=== PATIENT | female | born 1955 | race Caucasian/White ===

== ENCOUNTER 2017-05-13 10:31 | Outpatient (CLI) | payer BC ==
--- NOTE | 2017-05-13 12:53 | MMO ---
BILATERAL DIAGNOSTIC MAMMOGRAMS: HISTORY: A 61-year-old female with a personal history of left breast cancer. COMPARISON: 05/07/16, 04/25/15, 04/13/14. This patient's mammogram is interpreted with the assistance of computer-aided detection. Scattered areas of fibroglandular density are noted in both breasts. There is a stable-appearing sca r in the left breast. No direct or indirect evidence of malignancy. IMPRESSION: BI-RADS category 2, benign findings. Continued annual followup mammograms. BIRADS 2: Benign Finding(s) Routine annual screening mammography (for women over age 40) POS: [facility]
== END 2017-05-13 10:32 | disposition home or self-care (01) ==
LOC: MAMMO 10:31
PROVIDERS: ATTEND Specialist
DX: Z08 Encounter for follow-up examination after completed treatment for malignant neoplasm (principal); Z85.3 Personal history of malignant neoplasm of breast
CPT/HCPCS: 77066; G0204

== ENCOUNTER 2018-05-22 08:25 | Outpatient (CLI) | payer BC | END 2018-05-22 08:26 | disposition home or self-care (01) | LOC: BICMAMMO 08:25 | PROVIDERS: ATTEND Specialist | DX: Z08 Encounter for follow-up examination after completed treatment for malignant neoplasm (principal); Z85.3 Personal history of malignant neoplasm of breast | CPT/HCPCS: 77066; G0279 ==

== ENCOUNTER 2018-12-25 09:01 | Inpatient (IN) | payer BC ==
[2018-12-25 10:10] LABS: Band 42 % (5-11); Eosinophils 1 % (0-10); Hemoglobin 9.9 g/dL (12.0-16.0); Lymphocytes 8 % (21-51); MDiff Complete? YES; Mean Corpuscular HGB CONC 31.3 g/dL (32.0-36.0); Mean Corpuscular Hemoglobin 27.7 pg (27.0-31.0); Mean Corpuscular Volume 88.5 fL (78.0-98.0); Mean Platelet Volume 6.5 fL (7.4-10.4); Metamyelocyte 1 % (0-0); Monocytes 2 % (0-10); Neutrophil 46 % (42-75); Platelet Count 652 thou/uL (130-400); RBC Distribution Width 17.4 % (11.5-14.5); Red Blood Cell (RBC) Count 3.59 mill/uL (4.20-5.40); Reflex for Review?? YES; Toxic Granulation SLIGHT; White Blood Cell (WBC) Count 13.8 thou/uL (4.8-10.8)
[2018-12-25 10:13] LABS: ALT (SGPT) 12 U/L (8-55); AST (SGOT) 16 U/L (5-34); Albumin 2.8 g/dL (3.4-4.8); Alkaline Phosphatase 92 U/L (40-150); Anion Gap 16 mmol/L (10-20); BUN (Urea Nitrogen) 17 mg/dL (9.8-20.1); Bilirubin, Total 0.4 mg/dL (0.2-1.2); Calc. Creatinine Clearance 0 mL/min (70-130); Calcium 8.3 mg/dL (7.8-10.44); Carbon Dioxide 18 mmol/L (23-31); Chloride 100 mmol/L (98-107); Estimated GFR-MDRD 55; Globulin 4.1 g/dL (2.4-3.5); Glucose 131 mg/dL (80-115); Potassium 3.2 mmol/L (3.5-5.1); Protein, Total 6.9 g/dL (6.0-8.3); Sodium 131 mmol/L (136-145)
[2018-12-25] MEDS ORDERED: Piperacillin/Tazobactam 4.5 GM VIAL ONE (10:23)
[2018-12-25] MEDS ORDERED: Sodium Chloride 0.9% 100 ML ONE (10:24)
[2018-12-25] MEDS ORDERED: Vancomycin HCl 1.5 GM in Sodium Chloride 0.9% 250 ML 300 ML IVPB SCH (10:30)
[2018-12-25 11:07] LABS: Bacteria/HPF 1+ HPF (None Seen); Bilirubin Negative (Negative); Blood, Urine 3+ (Negative); Clarity Turbid (Clear); Glucose, Urine (Dipstick) Normal (Negative); Leukocyte Negative Leu/uL (Negative); Nitrite Negative (Negative); Protein, Urine (Dipstick) 100 mg/dL (Neg-Trace); RBC/HPF Greater than 50 HPF (0-3); Urobilinogen Normal mg/dL (Less than 2); Yeast-Budding 1+ HPF (None Seen)
[2018-12-25] MEDS ORDERED: Ketorolac Tromethamine 60 MG/2 ML VIAL ONE (11:29)
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
[2018-12-25] MEDS ORDERED: HUM PROTHROMBIN CPLX IV SCH (12:15)
[2018-12-25] MEDS ORDERED: [UNRECOGNIZED DRUG - OTHER] IV SCH (12:15)
[2018-12-25] MEDS ORDERED: ADMIXTURE FEE IV SCH (12:15)
[2018-12-25] MEDS ORDERED: Phytonadione 10 MG/ML AMP SLOW IVP SCH (12:15)
[2018-12-25] MEDS ORDERED: ISOVUE-370 76%-LOCM 1 ML ONE (12:17)
[2018-12-25] MEDS ORDERED: Iopamidol 370 76% 50 ML VIAL FS ONE (12:17)
[2018-12-25 12:29] LABS: PTT 91.5 SEC (22.9-36.1); Prothrombin Time 76.2 SEC (12.0-14.7)
[2018-12-25 12:33] LABS: INR-International Normal Ratio 9.6
--- NOTE | 2018-12-25 13:13 | HP ---
Job ID: [id number]
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
[2018-12-25] MEDS ORDERED: Fentanyl 250 MCG/5 ML VIAL ONE (14:24)
[2018-12-25] MEDS ORDERED: Fentanyl 100 MCG/2 ML VIAL ONE ×3 (14:24→18:25)
[2018-12-25 14:30] LABS: INR-International Normal Ratio 3.2; PTT 56.7 SEC (22.9-36.1); Prothrombin Time 32.2 SEC (12.0-14.7)
[2018-12-25] MEDS ORDERED: Lidocaine 1% PF 5 ML VIAL ONE (15:05)
[2018-12-25] MEDS ORDERED: Succinylcholine Chloride 20 MG/ML 10 ml SYRINGE FS ONE (15:05)
[2018-12-25] MEDS ORDERED: PROPOFOL 200 MG/20 ML VIAL ONE (15:05)
[2018-12-25] MEDS ORDERED: Rocuronium Bromide 10 MG/ML (10ML VIAL) ONE (15:05)
[2018-12-25] MEDS ORDERED: Propofol 500 MG/50 ML VIAL ONE (17:43)
[2018-12-25] MEDS ORDERED: Promethazine HCl 25 MG/ML VIAL IM PRN (18:01)
[2018-12-25] MEDS ORDERED: Ondansetron HCl/PF 4 MG/2 ML Vial IVP PRN (18:01)
[2018-12-25] MEDS ORDERED: Promethazine HCl 25 MG/ML VIAL SLOW IVP PRN (18:01)
[2018-12-25 18:12] LABS: Actual Bicarbonate (HCO3a) 19.1 mEq/L (22-28); Base Excess (BEa) -6.9 mEq/L (-2.0 to +3.0); Calcium, Ionized 1.08 mmol/L (1.12-1.30); Carboxyhemoglobin (COHb) 0.8 gm% (0.0-3.0); Hemoglobin (Hb) 11.6 g/dL (12.0-16.0); O2 Tension (PaO2) 159.1 mmHg (> 80.0); Potassium - ABG Lab 3.59 mmol/L (3.70-5.30)
[2018-12-25 18:13] LABS: Puncture Site RRAD
--- NOTE | 2018-12-25 18:39 | RAD ---
RADIOGRAPH CHEST 1 VIEW: DATE: 12/25/2018 HISTORY: 63-year-old female status post intubation. FINDINGS: There is no airspace density, pulmonary edema, or pneumothorax. The lateral costophrenic angles are n ot effaced. ETT distal tip at mid thoracic trachea. Esophagogastric tube side port at EG junction, distal tip in proximal stomach. Right subclavian central line with distal tip at upper right atrium. IMPRESSION: 1. No acute pulmonary findings. 2. Endotracheal tube, nasogastric tube, and right subclavian central venous catheter.
[2018-12-25] MEDS ORDERED: Morphine 4 MG/ML VIAL SLOW IVP PRN (19:40)
[2018-12-25] MEDS ORDERED: Ventilator Sedation Protocol 1 EACH FS SCH (19:40)
[2018-12-25] MEDS ORDERED: Ondansetron PF 4 MG/2 ML Vial IVP PRN (19:40)
[2018-12-25] MEDS ORDERED: Dextrose 5% in Water 1,000 ML IV PRN (19:40)
[2018-12-25] MEDS ORDERED: Dextrose 50% Abboject 50 ML SYRINGE SLOW IVP PRN (19:40)
[2018-12-25] MEDS ORDERED: Fentanyl BOLUS 250 ML IVPB PRN (19:53)
[2018-12-25] MEDS ORDERED: Propofol BOLUS 1,000 MG/100 ML VIAL IV PRN (19:53)
[2018-12-25] MEDS ORDERED: Morphine 2 MG/ML SYRINGE SLOW IVP PRN (19:53)
[2018-12-25] MEDS ORDERED: DISCONTINUE PREVIOUS NARCOTIC PAIN MEDICATIONS AND BENZODIAZEPINES FS SCH (19:53)
[2018-12-25] MEDS: Piperacillin/Tazobactam 4.5 GM in Sodium Chloride 0.9% 100 ML IVPB SCH ×2 (20:00→23:44)
[2018-12-25] MEDS: Sodium Chloride 0.9% 1,000 ML IV SCH (20:01)
[2018-12-25] MEDS: fentaNYL Citrate/PF 2,000 MCG in Sodium Chloride 0.9% 60 ML IV SCH (20:10)
[2018-12-25] MEDS: Famotidine/PF 20 mg/2ml Vial SLOW IVP SCH (20:22)
[2018-12-25] MEDS: Enoxaparin Sodium 40 MG/0.4 ML SYRINGE SC SCH (20:22)
[2018-12-25] MEDS: Vancomycin HCl 1 GM in Premix Bag 1 BAG IVPB SCH (22:35)
[2018-12-25] MEDS: Propofol 1,000 MG/100 ML VIAL IV PRN (23:44)
[2018-12-26] MEDS: Propofol 1,000 MG/100 ML VIAL IV PRN ×3 (04:59→19:42)
[2018-12-26] MEDS: Piperacillin/Tazobactam 4.5 GM in Sodium Chloride 0.9% 100 ML IVPB SCH ×4 (04:59→23:19)
[2018-12-26] MEDS: Sodium Chloride 0.9% 1,000 ML IV SCH (04:59)
[2018-12-26 05:07] LABS: Prothrombin Time 42.9 SEC (12.0-14.7)
[2018-12-26 05:08] LABS: PTT 57.1 SEC (22.9-36.1)
[2018-12-26 05:24] LABS: Anion Gap 12 mmol/L (10-20); BUN (Urea Nitrogen) 18 mg/dL (9.8-20.1); Calc. Creatinine Clearance 134 mL/min (70-130); Calcium 7.3 mg/dL (7.8-10.44); Carbon Dioxide 20 mmol/L (23-31); Chloride 106 mmol/L (98-107); Estimated GFR-MDRD 68; Glucose 161 mg/dL (80-115); Potassium 3.4 mmol/L (3.5-5.1); Sodium 135 mmol/L (136-145)
[2018-12-26 05:28] LABS: INR-International Normal Ratio 4.6
[2018-12-26 06:07] LABS: Anisocytosis SLIGHT = 6-15 cells (100X) (0-5/hpf); Band 47 % (5-11); Hypochromia SLIGHT = 6-15 cells (100X) (0-5/hpf); Lymphocytes 4 % (21-51); MDiff Complete? YES; Mean Corpuscular HGB CONC 30.5 g/dL (32.0-36.0); Mean Corpuscular Hemoglobin 27.3 pg (27.0-31.0); Mean Corpuscular Volume 89.7 fL (78.0-98.0); Mean Platelet Volume 6.5 fL (7.4-10.4); Monocytes 4 % (0-10); Neutrophil 45 % (42-75); Platelet Count 551 thou/uL (130-400); Platelet Morphology Comment Appears Increased; RBC Distribution Width 17.3 % (11.5-14.5); Red Blood Cell (RBC) Count 2.93 mill/uL (4.20-5.40); Toxic Granulation SLIGHT; White Blood Cell (WBC) Count 11.7 thou/uL (4.8-10.8)
[2018-12-26 08:30] LABS: CO2 Tension 33.7 mmHg (35.0-45.0)
[2018-12-26 08:31] LABS: Actual Bicarbonate (HCO3a) 20.2 mEq/L (22-28); Hemoglobin (Hb) 9.8 g/dL (12.0-16.0); Potassium - ABG Lab 3.33 mmol/L (3.70-5.30)
[2018-12-26] MEDS: Famotidine/PF 20 mg/2ml Vial SLOW IVP SCH ×2 (08:31→20:03)
[2018-12-26 08:32] LABS: Calcium, Ionized 1.02 mmol/L (1.12-1.30); Puncture Site RRA
[2018-12-26 08:33] LABS: ALV-art Gradient 81.425 (0-20)
--- NOTE | 2018-12-26 08:53 | RAD ---
XR Chest 1 View Portable History: Ventilated patient Comparison: Radiograph prior day Findings: Patient is intubated endotracheal tube tip at the level of the clavicles in good position. Enteric tube tip below diaphragm although out of field of view. Central venous catheter is similar. Mild atelectatic changes both lung bases. No significant pneumothorax. No acute osseous abnormality. Numerous radiopacities of the right hemiabdomen similar. Impression: Similar examination of the chest.
[2018-12-26] MEDS ORDERED: Potassium Chloride 40 MEQ in Premix Bag 1 BAG IVPB SCH (10:30)
[2018-12-26] MEDS: Vancomycin HCl 1 GM in Premix Bag 1 BAG IVPB SCH ×2 (10:45→23:19)
--- NOTE | 2018-12-26 11:32 | PRG ---
DATE OF SERVICE: 12/26/2018 SUBJECTIVE: Ms. 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 She remains in the Intensive Care Unit on ventilator. She is alert and interactive. She denies any abdominal pain. OBJECTIVE: VITAL SIGNS: On examination, her temperature is 98.4, pulse is 83, and blood pressure is 98/56. Her urine output for yesterday was 545 mL. LUNGS: Clear to auscultation. ABDOMEN: Benign with normoactive bowel sounds. The ABThera VAC device is intact. She still has dressing intact in the right lower quadrant abscess site. LABORATORY DATA: Her basic metabolic panel shows improved sodium and potassium and carbon dioxide. Her renal function is stable with a creatinine of 0.8. Her CBC shows that her hemoglobin has dropped from 9.9 before surgery to 8.0 now. Her white blood cell count has dropped to 11.7, however, she still has a 47% bandemia. Her coagulation studies show that her INR has risen from 3.2 at the time of surgery yesterday up to 4.6. ASSESSMENT: The patient is stable after surgery yesterday. The right lower quadrant wound dressing will be changed today. I will plan to return her to the operating room tomorrow for ABThera removal and hopeful closure. The problem with her will be figuring out what I can close together given the enormity of her hernia. I have discussed this with her . Job ID: [id number]
[2018-12-26] MEDS: Potassium Chloride 20 MEQ in Lactated Ringer's 1,000 ML IV SCH ×3 (12:50→21:11)
[2018-12-26] MEDS: fentaNYL Citrate/PF 2,000 MCG in Sodium Chloride 0.9% 60 ML IV SCH (15:15)
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
[2018-12-26] MEDS: Enoxaparin Sodium 40 MG/0.4 ML SYRINGE SC SCH (20:03)
[2018-12-27] MEDS: Propofol 1,000 MG/100 ML VIAL IV PRN ×4 (01:15→23:19)
[2018-12-27] MEDS: Piperacillin/Tazobactam 4.5 GM in Sodium Chloride 0.9% 100 ML IVPB SCH ×4 (05:20→23:18)
[2018-12-27] MEDS: Famotidine/PF 20 mg/2ml Vial SLOW IVP SCH ×2 (07:35→20:23)
[2018-12-27] MEDS: Lorazepam 2 MG/ML VIAL SLOW IVP PRN ×3 (07:35→17:30)
[2018-12-27 07:45] LABS: Actual Bicarbonate (HCO3a) 21.7 mEq/L (22-28); CO2 Tension 33.4 mmHg (35.0-45.0); O2 Tension (PaO2) 128.8 mmHg (> 80.0); pH, Arterial 7.43 (7.35-7.45)
[2018-12-27 07:46] LABS: Base Excess (BEa) -2.3 mEq/L (-2.0 to +3.0); Calcium, Ionized 1.05 mmol/L (1.12-1.30); Carboxyhemoglobin (COHb) 2.1 gm% (0.0-3.0); Hemoglobin (Hb) 6.9 g/dL (12.0-16.0); Potassium - ABG Lab 3.85 mmol/L (3.70-5.30); Puncture Site LB
[2018-12-27] MEDS: Potassium Chloride 20 MEQ in Lactated Ringer's 1,000 ML IV SCH ×2 (10:21→17:39)
[2018-12-27] MEDS: Vancomycin HCl 1 GM in Premix Bag 1 BAG IVPB SCH ×2 (10:21→21:55)
[2018-12-27 12:13] LABS: Prothrombin Time 38.7 SEC (12.0-14.7)
[2018-12-27 12:14] LABS: PTT 58.5 SEC (22.9-36.1)
[2018-12-27 12:23] LABS: #Basophils 0.1 thou/uL (0.0-0.2); #Eosinphils 0.1 thou/uL (0.0-0.7); #Lymphocytes 0.5 thou/uL (1.20-3.40); #Monocytes 0.3 thou/uL (0.11-0.59); %Basophils 0.6 % (0.0-1.0); %Eosinophils 1.1 % (0.0-10.0); %Lymphocytes 4.7 % (21.0-51.0); %Monocytes 2.9 % (0.0-10.0); %Neutrophils 90.6 % (42.0-75.0); Hypochromia SLIGHT = 6-15 cells (100X) (0-5/hpf); MDiff Complete? YES; Mean Corpuscular HGB CONC 29.8 g/dL (32.0-36.0); Mean Corpuscular Hemoglobin 27.1 pg (27.0-31.0); Mean Corpuscular Volume 91.1 fL (78.0-98.0); Mean Platelet Volume 6.6 fL (7.4-10.4); Platelet Count 513 thou/uL (130-400); RBC Distribution Width 17.2 % (11.5-14.5); Red Blood Cell (RBC) Count 2.57 mill/uL (4.20-5.40)
[2018-12-27 12:29] LABS: Anion Gap 11 mmol/L (10-20); BUN (Urea Nitrogen) 15 mg/dL (9.8-20.1); Calc. Creatinine Clearance 143 mL/min (70-130); Calcium 7.7 mg/dL (7.8-10.44); Carbon Dioxide 21 mmol/L (23-31); Chloride 108 mmol/L (98-107); Estimated GFR-MDRD 73; Glucose 127 mg/dL (80-115); Potassium 3.9 mmol/L (3.5-5.1); Sodium 136 mmol/L (136-145)
[2018-12-27] MEDS ORDERED: Bupivacaine/Epinephrine 0.25% 30 ML VIAL ONE (12:43)
[2018-12-27] MEDS: fentaNYL Citrate/PF 2,000 MCG in Sodium Chloride 0.9% 60 ML IV SCH (12:57)
[2018-12-27] MEDS ORDERED: Rocuronium Bromide 10 MG/ML (10ML VIAL) ONE (13:11)
[2018-12-27] MEDS ORDERED: Lidocaine 1% PF 5 ML VIAL ONE (13:11)
[2018-12-27] MEDS ORDERED: PROPOFOL 200 MG/20 ML VIAL ONE (13:11)
[2018-12-27] MEDS ORDERED: Vecuronium 10 MG VIAL ONE (13:11)
[2018-12-27] MEDS ORDERED: Fentanyl 250 MCG/5 ML VIAL ONE (13:23)
[2018-12-27] MEDS ORDERED: Midazolam HCl 2 mg/2 ml Vial ONE (13:23)
--- NOTE | 2018-12-27 15:07 | PRG ---
DATE OF SERVICE: 12/27/2018 SUBJECTIVE: Domenica Meek has been hemodynamically stable overnight. She is tentatively on schedule to go back to the OR today. OBJECTIVE: VITAL SIGNS: Heart rate is 84, blood pressure 101/58, and respiratory rate in the 20s. HEAD AND NECK: Unchanged. LUNGS: Clear. HEART: Regular rhythm. ABDOMEN: Soft and bandaged. EXTREMITIES: Without asymmetry. LABORATORY DATA: White count 11, hemoglobin 7, platelets 513,000. Sodium 136, potassium 3.9, chloride 108, bicarb , BUN 15, and creatinine 0.8. A pH 7.43, CO2 of 33, and pO2 of 128. IMPRESSION: Respiratory failure, mainly because she still has an open abdomen after perforated viscus and abdominal washout. We will continue to follow the other physicians caring for. She probably transfuse. Job ID: [id number]
[2018-12-27] MEDS: Enoxaparin Sodium 40 MG/0.4 ML SYRINGE SC SCH (20:21)
[2018-12-28 03:41] LABS: #Eosinphils 0.2 thou/uL (0.0-0.7); #Lymphocytes 0.6 thou/uL (1.20-3.40); #Monocytes 0.4 thou/uL (0.11-0.59); #Neutrophils 9.5 thou/uL (1.40-6.50); %Basophils 0.2 % (0.0-1.0); %Eosinophils 1.6 % (0.0-10.0); %Lymphocytes 5.3 % (21.0-51.0); %Monocytes 3.4 % (0.0-10.0); %Neutrophils 89.5 % (42.0-75.0); Hemoglobin 7.7 g/dL (12.0-16.0); Mean Corpuscular Hemoglobin 28.3 pg (27.0-31.0); Mean Corpuscular Volume 91.1 fL (78.0-98.0); Mean Platelet Volume 6.5 fL (7.4-10.4); Platelet Count 503 thou/uL (130-400); RBC Distribution Width 16.9 % (11.5-14.5); Red Blood Cell (RBC) Count 2.72 mill/uL (4.20-5.40); White Blood Cell (WBC) Count 10.6 thou/uL (4.8-10.8)
[2018-12-28 03:47] LABS: PTT 56.7 SEC (22.9-36.1); Prothrombin Time 39.7 SEC (12.0-14.7)
[2018-12-28 03:51] LABS: INR-International Normal Ratio 4.1
[2018-12-28 04:01] LABS: ALT (SGPT) 15 U/L (8-55); AST (SGOT) 26 U/L (5-34); Albumin 2.1 g/dL (3.4-4.8); Alkaline Phosphatase 77 U/L (40-150); Anion Gap 10 mmol/L (10-20); BUN (Urea Nitrogen) 14 mg/dL (9.8-20.1); Bilirubin, Total 0.4 mg/dL (0.2-1.2); Calc. Creatinine Clearance 143 mL/min (70-130); Calcium 7.9 mg/dL (7.8-10.44); Carbon Dioxide 23 mmol/L (23-31); Chloride 110 mmol/L (98-107); Estimated GFR-MDRD 73; Globulin 3.3 g/dL (2.4-3.5); Glucose 109 mg/dL (80-115); Magnesium 1.6 mg/dL (1.6-2.6); Phosphorus 2.8 mg/dL (2.3-4.7); Potassium 4.1 mmol/L (3.5-5.1); Protein, Total 5.4 g/dL (6.0-8.3); Sodium 139 mmol/L (136-145)
[2018-12-28] MEDS: Potassium Chloride 20 MEQ in Lactated Ringer's 1,000 ML IV SCH ×3 (04:26→17:02)
[2018-12-28] MEDS: Piperacillin/Tazobactam 4.5 GM in Sodium Chloride 0.9% 100 ML IVPB SCH ×3 (05:31→17:02)
[2018-12-28] MEDS: Propofol 1,000 MG/100 ML VIAL IV PRN (06:23)
[2018-12-28] MEDS: Famotidine/PF 20 mg/2ml Vial SLOW IVP SCH ×2 (08:04→20:05)
[2018-12-28 08:17] LABS: Base Excess (BEa) -3.2 mEq/L (-2.0 to +3.0); CO2 Tension 34.5 mmHg (35.0-45.0); Calcium, Ionized 1.03 mmol/L (1.12-1.30); Carboxyhemoglobin (COHb) 1.5 gm% (0.0-3.0); Hemoglobin (Hb) 8.9 g/dL (12.0-16.0); O2 Tension (PaO2) 86.4 mmHg (> 80.0); Potassium - ABG Lab 4.19 mmol/L (3.70-5.30)
[2018-12-28 08:21] LABS: ALV-art Gradient 120.025 (0-20); Puncture Site RRA
[2018-12-28] MEDS ORDERED: Furosemide 100 MG/10 ML VIAL SLOW IVP SCH (09:55)
--- NOTE | 2018-12-28 10:22 | PRG ---
DATE OF SERVICE: 12/28/2018 SUBJECTIVE: Ms. Meek had her abdomen closed yesterday. Her minute volume is 10 L a minute. With 10 cm of pressure support and 5 cm of PEEP, her spontaneous tidal volumes were about 250. We turned her volume breath rate down significantly and increased her pressure support to 12 and her tidal volumes improved to over 300 mL. OBJECTIVE: VITAL SIGNS: Heart rates in the 90s, blood pressure 119/61, respiratory rates in the 20s. Intake and outputs, positive 3907. LUNGS: Clear. HEART: Regular rhythm. ABDOMEN: Soft. EXTREMITIES: Without clubbing, cyanosis, or edema. I suspect she is third-spacing a lot of volume into her abdomen. LABORATORY DATA: White count 10.6, hemoglobin 7.7, platelets 503. Sodium 139, potassium 4.1, chloride 110, bicarb 23, BUN 14, creatinine 0.8. Blood gas shows pH 7.4, CO2 of 34, PO2 of 86. Her FiO2 is 35%. PLAN: We try giving her some Lasix today. Hopefully, she tolerates this. We will decrease her ventilatory support. We may try spontaneous breathing trial tomorrow to see how she looks overall. CRITICAL CARE TIME: 30 minutes. Job ID: [id number]
[2018-12-28] MEDS: Vancomycin HCl 1 GM in Premix Bag 1 BAG IVPB SCH ×2 (10:25→22:47)
--- NOTE | 2018-12-28 15:02 | OP ---
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 OPERATIONS PERFORMED: Exploratory laparotomy with ABThera removal and abdominal washout. I placed two drains, one intraabdominal and one subcutaneous. I performed a complex closure of her midline abdominal wall using retention sutures, and I performed a dressing change of her right lower quadrant abscess site. ANESTHESIA: General endotracheal. INDICATIONS: The patient is morbidly obese 63-year-old white female with a huge chronic right-sided abdominal wall hernia. She had a necrotizing soft tissue infection of the right lower quadrant involving her pannus caused by a fistula between her small bowel and mesh within her abdomen. This was treated two days previously and she is taken back to the operating room at this time for removal of her ABThera device and closure of her abdomen. DESCRIPTION OF OPERATION: Informed consent was obtained. The patient was taken to the operating room, where general endotracheal anesthesia was obtained with the patient in supine position. The external portion of the ABThera was removed. The abdominal wall was prepped with Betadine. The inferior portion of the abdomen involving the abscess and the drain site was excluded with a 1000 drape. The abdomen was then draped in sterile fashion. The internal component of the ABThera was removed. There was no evidence of intraabdominal sepsis. The abdominal cavity was irrigated with a couple liters of warm saline and all irrigant was aspirated. I inspected the intraabdominal cavity and found no evidence of concern or change. The fascial defect at the site of the previous fistula in the lower abdomen was still closed with PDS sutures I obtained a #19 round fluted drain and placed this within the abdominal cavity. This was brought out left lower quadrant and secured with 3-0 nylon suture. I then performed a complex closure of the abdominal wall using a running suture of #1 nonlooped PDS to approximate the fascia such as it existed. There seemed to be some degree of mesh within the abdominal incision, but it clearly did not extend from more than a few millimeters or maybe a centimeter on the right side of the abdomen. During the course of closure, I placed 3 interrupted retention sutures of #1 Prolene to obtain full-thickness abdominal wall bites. Retention bridges were not available and I therefore placed these retention sutures using red rubber catheters to protect the underlying skin. The fascia seemed to be appropriately closed. The wound was extensively irrigated. I placed a #19 round fluted drain within the wound and brought this out by left lower quadrant also and secured with 3-0 nylon suture. The skin edges were approximated with skin niko after gloves were changed. The skin edges were then approximated with skin niko. There were no complications. The patient was stable during this procedure. There was essentially no blood loss. Attention was then turned to the abscess cavity in the right lower quadrant. The Kerlix roll within was removed. There was a little foul smell within the wound. There is no obvious necrosis that required debridement at this time. I therefore packed it with another two Kerlix rolls moistened with peroxide. Dressings were placed over the drain exit site in the lower midline and the abscess cavity in the right lower quadrant. The patient was returned to the intensive care unit still intubated, but in stable condition. Job ID: [id number]
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
--- NOTE | 2018-12-28 16:40 | PRG ---
DATE OF SERVICE: 12/28/2018 SUBJECTIVE: Ms. Meek is postoperative day #1 from abdominal closure and postoperative day #3 from small bowel resection for a fistula between small bowel and mesh, at which time necrotizing infection was drained on her right abdominal wall. Complicating all of this is that she has an enormous right-sided abdominal wall hernia that is not able to be repaired. She remains on the ventilator in the intensive care unit, although her settings have been decreased. She is arousable and interacts appropriately. OBJECTIVE: VITAL SIGNS: She is afebrile. Pulse is 89 and blood pressure 108/57. Her oxygen saturation is 98%. Urine output for yesterday was 1200 mL. She has had 70 mL out her intraabdominal drain, although it is all serous. She has negligible output from her subcutaneous drain. Dressings are intact over the midline as well as the lower abdominal Yara and the right lower quadrant abscess cavity. LUNGS: Clear to auscultation. ABDOMEN: Obese, but soft. LABORATORY DATA: White blood cell count is 10.6, hemoglobin 7.7 (she got 1 unit of blood yesterday), and platelet count is 503. Chemistry profile shows essentially normal electrolytes. Her liver function tests are normal. Her albumin is little low at 2.1. ASSESSMENT: She seems to be doing well following small bowel resection and removal of infected mesh. She has retention sutures helping to close her midline abdominal incision. She will require wound care for the right lower quadrant abscess. I anticipate eventual placement of a wound VAC. I will continue to follow the drainage from the Yara drain that communicates with the site of the infected mesh. I would anticipate extubation soon and advancement of her diet at that time. Job ID: [id number]
[2018-12-29] MEDS: Piperacillin/Tazobactam 4.5 GM in Sodium Chloride 0.9% 100 ML IVPB SCH ×5 (00:39→23:33)
[2018-12-29] MEDS: fentaNYL Citrate/PF 2,000 MCG in Sodium Chloride 0.9% 60 ML IV SCH (00:47)
[2018-12-29] MEDS: Potassium Chloride 20 MEQ in Lactated Ringer's 1,000 ML IV SCH ×2 (04:44→06:42)
[2018-12-29 08:07] LABS: #Eosinphils 0.1 thou/uL (0.0-0.7); #Lymphocytes 0.6 thou/uL (1.20-3.40); #Monocytes 0.5 thou/uL (0.11-0.59); #Neutrophils 7.7 thou/uL (1.40-6.50); %Basophils 0.2 % (0.0-1.0); %Eosinophils 1.6 % (0.0-10.0); %Lymphocytes 6.6 % (21.0-51.0); %Monocytes 5.1 % (0.0-10.0); %Neutrophils 86.5 % (42.0-75.0); Hemoglobin 7.6 g/dL (12.0-16.0); Mean Corpuscular HGB CONC 30.6 g/dL (32.0-36.0); Mean Corpuscular Hemoglobin 27.7 pg (27.0-31.0); Mean Corpuscular Volume 90.5 fL (78.0-98.0); Mean Platelet Volume 6.4 fL (7.4-10.4); Platelet Count 499 thou/uL (130-400); RBC Distribution Width 17.3 % (11.5-14.5); Red Blood Cell (RBC) Count 2.74 mill/uL (4.20-5.40); White Blood Cell (WBC) Count 8.9 thou/uL (4.8-10.8)
[2018-12-29] MEDS: Famotidine/PF 20 mg/2ml Vial SLOW IVP SCH ×2 (08:12→20:22)
[2018-12-29 08:27] LABS: Anion Gap 12 mmol/L (10-20); BUN (Urea Nitrogen) 15 mg/dL (9.8-20.1); Calc. Creatinine Clearance 128 mL/min (70-130); Calcium 7.5 mg/dL (7.8-10.44); Carbon Dioxide 23 mmol/L (23-31); Chloride 111 mmol/L (98-107); Estimated GFR-MDRD 61; Glucose 107 mg/dL (80-115); Potassium 4.4 mmol/L (3.5-5.1); Sodium 142 mmol/L (136-145)
[2018-12-29 08:40] LABS: INR-International Normal Ratio 4.2
[2018-12-29] MEDS: Vancomycin HCl 1 GM in Premix Bag 1 BAG IVPB SCH (10:16)
[2018-12-29] MEDS ORDERED: Potassium Chloride 20 MEQ in Lactated Ringer's 1,000 ML IV SCH (11:30)
--- NOTE | 2018-12-29 11:47 | PRG ---
DATE OF SERVICE: 12/29/2018 SUBJECTIVE: Domenica Meek remains mechanically ventilated, were down to a pressure support 5 and PEEP 5. OBJECTIVE: VITAL SIGNS: Blood pressure 120/58, heart rate is 90, and respiratory rate is 18. LUNGS: Clear anteriorly and distant. HEART: Regular rhythm. S1 and S2 are distant. ABDOMEN: Soft and distended. EXTREMITIES: Without asymmetry. Intake and output, positive 67. Her weight is recorded as 284. Her admitting weight reportedly was 273. LABORATORY STUDIES: White count 8.9, hemoglobin 7.6, and platelets 499. Electrolytes are normal. BUN is 15 and creatinine 0.93. ASSESSMENT AND PLAN: She has significant extravascular volume on board after presenting with sepsis secondary to a perforated abdominal viscus. Hopefully, we can start diuresing her and hopefully, she will tolerate this. She had Lasix 60 and basically had an even intake and output yesterday. We had decreased her IV fluids. Give her more Lasix now. When she has a good evening though, may be tomorrow morning, we can extubate her and if necessary put her on BiPAP. Critical care time is 35 minutes. Job ID: [id number] MTDD
[2018-12-29] MEDS: Furosemide 100 MG/10 ML VIAL SLOW IVP SCH ×2 (11:54→16:46)
--- NOTE | 2018-12-29 14:17 | PRG ---
DATE OF SERVICE: 12/29/2018 SUBJECTIVE: She is postoperative day #2 from closure of her abdomen and postoperative day #4 from laparotomy, incision and drainage of necrotizing soft tissue infection, removal of infected mesh. She was on the ventilator when I arrived this morning. She is, however, only on CPAP. She appears to be breathing well. Dressings have been changed already this morning per Wound Care team. She is sedated but arousable currently. OBJECTIVE: VITAL SIGNS: She is afebrile. Pulse is 66 to 75, blood pressure is 112/56. LUNGS: Clear to auscultation. ABDOMEN: Morbidly obese, but soft. Midline incision appears to be healing nicely. Right lower quadrant dressings intact. LABORATORY DATA: White blood cell count is normal at 8.9, hemoglobin is stable at 7.6, platelet count is 499. Basic metabolic panel reveals essentially normal electrolytes. ASSESSMENT AND PLAN: She is doing well following the above-mentioned surgery. She will be weaned and drain removed from the ventilator per Dr. Flaherty. I will resume her diet after she is extubated. I will continue wound care. Her cultures show Proteus, Streptococcus, and a couple of gram-negative rods. We will continue her on Zosyn, although she no longer appears to require vancomycin. Job ID: [id number]
[2018-12-30] MEDS: Piperacillin/Tazobactam 4.5 GM in Sodium Chloride 0.9% 100 ML IVPB SCH ×4 (05:01→23:49)
[2018-12-30 05:03] LABS: Anion Gap 13 mmol/L (10-20); BUN (Urea Nitrogen) 17 mg/dL (9.8-20.1); Calc. Creatinine Clearance 125 mL/min (70-130); Calcium 7.8 mg/dL (7.8-10.44); Carbon Dioxide 23 mmol/L (23-31); Chloride 110 mmol/L (98-107); Estimated GFR-MDRD 60; Glucose 114 mg/dL (80-115); Potassium 4.1 mmol/L (3.5-5.1); Sodium 142 mmol/L (136-145)
[2018-12-30 05:19] LABS: #Eosinphils 0.3 thou/uL (0.0-0.7); #Lymphocytes 0.5 thou/uL (1.20-3.40); #Monocytes 0.4 thou/uL (0.11-0.59); #Neutrophils 7.1 thou/uL (1.40-6.50); %Basophils 0.6 % (0.0-1.0); %Eosinophils 3.2 % (0.0-10.0); %Lymphocytes 6.1 % (21.0-51.0); %Monocytes 5.2 % (0.0-10.0); %Neutrophils 84.9 % (42.0-75.0); Hemoglobin 7.9 g/dL (12.0-16.0); Mean Corpuscular Hemoglobin 27.3 pg (27.0-31.0); Mean Corpuscular Volume 91.2 fL (78.0-98.0); Mean Platelet Volume 6.6 fL (7.4-10.4); Platelet Count 507 thou/uL (130-400); Platelet Morphology Comment Appears Increased; RBC Distribution Width 17.5 % (11.5-14.5); Red Blood Cell (RBC) Count 2.88 mill/uL (4.20-5.40); White Blood Cell (WBC) Count 8.4 thou/uL (4.8-10.8)
[2018-12-30 05:33] LABS: Prothrombin Time 44.5 SEC (12.0-14.7)
[2018-12-30 05:35] LABS: INR-International Normal Ratio 4.8
[2018-12-30 05:37] LABS: CO2 Tension 33.7 mmHg (35.0-45.0); pH, Arterial 7.44 (7.35-7.45)
[2018-12-30 05:38] LABS: Actual Bicarbonate (HCO3a) 22.2 mEq/L (22-28); Base Excess (BEa) -1.7 mEq/L (-2.0 to +3.0); Calcium, Ionized 1.06 mmol/L (1.12-1.30); Carboxyhemoglobin (COHb) 2.3 gm% (0.0-3.0); Hemoglobin (Hb) 7.9 g/dL (12.0-16.0); Potassium - ABG Lab 4.07 mmol/L (3.70-5.30)
[2018-12-30 05:39] LABS: ALV-art Gradient 34.125 (0-20); Puncture Site RBRACHIAL
[2018-12-30] MEDS: Famotidine/PF 20 mg/2ml Vial SLOW IVP SCH ×2 (08:01→20:46)
--- NOTE | 2018-12-30 08:03 | PDOC.GSPN ---
Surgery Progress Note: Subj - Subjective Narrative: Patient is a 63 y/o morbidly obese, female who is post operative day # 3 from abdominal closure and post operative day #5 from small bowel resection due to fistula to mesh and complicated RLQ narcotizing infection. Additionally, she has a large abdominal hernia that was unable to be repaired. She is still on the ventilator and is very tired this morning. CPAP was attempted yesterday, but patient failed and was put back on ventilator. Her ventilator settings are 15 spuport and 5 peep witha 500 ml tidal volume at a rate of 6 (SIMV). She does not say much and does not express any complaints. She was given a second round of Lasiks 60 yesterday and has been losing her excess fluid well. In terms of continuous fluids/meds she is on KVO fluids (20ml/hr) and precedx. Her weight has decreased from 129kg yesterday to 126kg today. Surgery Progress Note: Obj - Vital signs Vital signs: Vital Signs - Most Recent Temp Pulse Resp BP Pulse Ox 98.0 F 69 25 H 116/66 98 12/30/18 04:00 12/30/18 06:46 12/30/18 06:00 12/30/18 06:46 12/29/18 19:40 - Physical Exam General: no distress, no pain, obese, other (Active and arousable but tired) Cardiovascular: regular rate and rhythm (Normal S1 and S2), other (+1 peripheral edema on lower extremities bilaterally) Respiratory: coarse breath sounds (from ventilator) Abdomen: other (Abdomen is erythematous around wound sites. Wound dressing is dry and clean. Drainage form abdominal drain site was 60 ml over night and 10 ml from subcutaneous drainage site.) Genitourinary (Female): other (38 ml of urine output overnight) Surgery Progress Note: Results - Labs Result Diagrams: 12/30/18 04:19 12/30/18 04:19 Lab results: Laboratory Results - last 24 hr 12/30/18 12/30/18 12/30/18 04:19 04:19 04:52 WBC 8.4 RBC 2.88 L Hgb 7.9 L Hct 26.3 L MCV 91.2 MCH 27.3 MCHC 30.0 L RDW 17.5 H Plt Count 507 H MPV 6.6 L Neutrophils % 84.9 H Lymphocytes % 6.1 L Monocytes % 5.2 Eosinophils % 3.2 Basophils % 0.6 Neutrophils # 7.1 H Lymphocytes # 0.5 L Monocytes # 0.4 Eosinophils # 0.3 Basophils # 0.0 Plt Morphology Comment Appears Increased H PT 44.5 H INR 4.8 H* APTT 87.0 H Specimen Type Puncture Site Bicarbonate Actual ABG pH ABG pCO2 ABG pO2 ABG O2 Sat Calc/Amadou ABG O2 Content ABG Base Excess ABG Hematocrit ABG Hemoglobin ABG Oxyhemoglobin ABG Carboxyhemoglobin ABG Methemoglobin A-a O2 Gradient Ionized Calcium Mode of Support Mechanical Rate Inspired O2 Tidal Volume Pressure Support PEEP or CPAP Sodium 142 Potassium 4.1 Chloride 110 H Carbon Dioxide 23 Anion Gap 13 BUN 17 Creatinine 0.95 Estimated GFR (MDRD) 60 Glucose 114 Calcium 7.8 12/30/18 05:30 WBC RBC Hgb Hct MCV MCH MCHC RDW Plt Count MPV Neutrophils % Lymphocytes % Monocytes % Eosinophils % Basophils % Neutrophils # Lymphocytes # Monocytes # Eosinophils # Basophils # Plt Morphology Comment PT INR APTT Specimen Type ARTERIAL Puncture Site RBRACHIAL Bicarbonate Actual 22.2 ABG pH 7.44 ABG pCO2 33.7 L ABG pO2 102.0 H ABG O2 Sat Calc/Amadou 97.6 ABG O2 Content 10.8 L ABG Base Excess -1.7 ABG Hematocrit 23.0 L ABG Hemoglobin 7.9 L ABG Oxyhemoglobin 95.1 ABG Carboxyhemoglobin 2.3 ABG Methemoglobin 0.30 A-a O2 Gradient 34.125 H Ionized Calcium 1.06 L Mode of Support SIMV Mechanical Rate 6 Inspired O2 25 Tidal Volume 500 Pressure Support 15 PEEP or CPAP 5.0 Sodium 140 Potassium 4.07 Chloride 112 H Carbon Dioxide Anion Gap BUN Creatinine Estimated GFR (MDRD) Glucose Calcium Surgery Progress Note: A/P - Plan Plan: Patient is a 63 year morbidly obese female S/P small bowel resection, necrotizing RLQ infection and abdominal closure. Plan is to continue zosyn and KVO fluids. There is minimal peripheral edema and her urine output is reassuring , indicating her fluid balance has improved. Will attempt CPAP again today and if patient is able to maintain ventilation, permanently extubate and remove form ventilator. If extubated today, will continue diet as tolerated. Continue wound care and monitor drainage form abdominal sites. This morning her hemoglobin is at 7.9 and BMP shows normal electrolyte levels, which is significantly improved from her day of admission. INR is still elevated at 4.8, but will monitor for continued improvement. As above. She appears to be very stable except for ability to wean from vent. Continue Antibiotics. Start TF, start TPN.
--- NOTE | 2018-12-30 12:43 | PQF ---
CLINICAL DOCUMENTATION IMPROVEMENT CLARIFICATION FORM: ICD-10 Updated PLEASE DO AN ADDENDUM TO THE PROGRESS NOTE WITH ANY DOCUMENTATION UPDATES OR ADDITIONS AND CARRY THROUGH TO DC SUMMARY. THANK YOU. DATE: 12/30/2018 ATTN: Dr. Liao Please exercise your independent, professional judgment in responding to the clarification form. Clinical indicators are provided on the bottom of this form for your review Please check appropriate box(es): [ x] Sepsis due to: Enteric leak with intra-abdominal/abd wall abscess, Due to: [ x ] abdominal wall Mesh [ ] Other [ ] Sepsis due to other: [ ] Localized infection without sepsis [ ] Other diagnosis [ ] Unable to determine In addition, please specify: Present on Admission (POA): [ x ] Yes [ ] No [ ] Unable to determine For continuity of documentation, please document condition throughout progress notes and discharge summary. Thank You. CLINICAL INDICATORS - SIGNS / SYMPTOMS / LABS H&P 12/25: She was initially tachycardic with a pulse of [address] 13.8 INR is markedly elevated at 9,6 12/29 (Flaherty) She has significant extravascular volume on board after presenting with sepsis secondary to a perforated abdominal viscus. RISKS: 12/25 Operative note: Enteric leak with intra-abdominal/abd wall abscess, huge r sided chronic abd. wall hernia, morbid obesity w/ infected abd wall mesh leading to a fistula from the small bowel into the abd wall. TREATMENT: 12/25 OP Note: Procedure: segmental sm. bowel resection, excision of infected abd wall mesh, drainage of abd. wall abscess and RLQ with debridement of necrotizing abd wall infection. AUG 27: Zosyn 4.5 gm IV Q6 hr Thank you, Kelly (This form is maintained as a part of the permanent medical record) 2014 [employer]. All Rights Reserved Kelly Ward RN, BSN [email or web address] Office: [phone] [facility]
--- NOTE | 2018-12-30 17:36 | PRG ---
DATE OF SERVICE: 12/30/2018 SUBJECTIVE: Domenica Meek remains mechanically ventilated. She did not pass a spontaneous breathing trial, although it was a long spontaneous breathing trial yesterday on pressure support of 5, PEEP of 5. After lunch, she started becoming tachypneic and showing signs of muscle weakness, so she was then placed back on mechanical ventilation. OBJECTIVE: VITAL SIGNS: Today blood pressure is 131/82, heart rate 63, respiratory rate 16. HEENT: Pupils are equal. Sclerae are anicteric. NECK: Supple. LUNGS: Clear anteriorly. HEART: Regular rhythm. S1 and S2 normal. ABDOMEN: Bandaged. She has a wound VAC in the right lower quadrant and a bandage in the central abdomen. LABORATORY DATA: White count 8.4, hemoglobin 7.9, platelets 507,000. Sodium 142, potassium 4.1, chloride 110, bicarb 23, BUN 17, creatinine 0.95. PH of 7.44, CO2 of 33, and PO2 of 102. Intake and outputs, -1253. IMPRESSION: 1. Volume overload after peritonitis. 2. History of fistula. It was present for reportedly 19 years from mesh through her skin and eventually erosion of the mesh into her small intestine leading to this surgery and peritonitis. We will continue mechanical ventilatory support. I talked to her by phone today. I have explained that she is not yet weanable and may not be for until sometime next week. Hopefully, we can avoid opening up the tracheostomy pathway. Her abdominal girth that is unrelated to her surgery is a factor and then all the peritoneal inflammation and third spacing of fluid are in aggravation and significantly increase her work of breathing. We will continue to follow the other physicians caring for. CRITICAL CARE TIME: 30 minutes. Job ID: [id number]
[2018-12-30] MEDS ORDERED: MULTIVITAMINS IV SCH (22:00)
[2018-12-30] MEDS ORDERED: MULTITRACE IV SCH (22:00)
[2018-12-30] MEDS ORDERED: SODIUM ACETATE IV SCH (22:00)
[2018-12-30] MEDS ORDERED: [UNRECOGNIZED DRUG - OTHER] IV SCH (22:00)
[2018-12-31] MEDS: fentaNYL Citrate/PF 2,000 MCG in Sodium Chloride 0.9% 60 ML IV SCH (00:16)
[2018-12-31] MEDS: Piperacillin/Tazobactam 4.5 GM in Sodium Chloride 0.9% 100 ML IVPB SCH ×3 (05:29→17:52)
--- NOTE | 2018-12-31 08:45 | RAD ---
PORTABLE CHEST: HISTORY: CCU followup. Ventilator followup. COMPARISON: 12/26/2018. FINDINGS: ET tube and NG tube are in place. Central line unchanged. Vascular markings upper normal. No focal infiltrate or significant effusion. No acute interval change. POS: [facility]
[2018-12-31] MEDS: Famotidine/PF 20 mg/2ml Vial SLOW IVP SCH ×2 (08:55→21:42)
[2018-12-31] MEDS ORDERED: Furosemide 40 MG/4 ML VIAL SLOW IVP SCH (13:45)
--- NOTE | 2018-12-31 17:09 | PRG ---
DATE OF SERVICE: 12/31/2018 SUBJECTIVE: Ms. Meek did another spontaneous breathing trial this morning. She only lasted for an hour and a half. She is awake. She will move all her extremities. She nods to questions. She also nods surprisingly that she is reasonably comfortable. OBJECTIVE: VITAL SIGNS: Respiratory rates in the teens, minute volume is 8-10 L a minute, heart rate is 64. She is in sinus rhythm. Blood pressure 126/74. Intake and output positive 461. LUNGS: Clear. HEART: Regular rhythm. ABDOMEN: Soft and distended. EXTREMITIES: Without asymmetry or edema. LABORATORY DATA: White count 8.4, hemoglobin 7.9, platelets 507,000. Creatinine is 0.95, potassium 4.1. Electrolytes were otherwise normal. PH 7.44, CO2 of 33, PO2 of 102. IMPRESSION: Respiratory failure associated with peritonitis. PLAN: I suspect deconditioning and her abdominal girth will be an impediment to weaning. Hopefully, we can avoid a tracheostomy, but this may be where we are headed if we do not see her make any progress over the next few days. Chest x- ray was reviewed by me and shows no infiltrates. Critical care time is 35 minutes. Job ID: [id number] MTDD
--- NOTE | 2018-12-31 22:08 | PRG ---
DATE OF SERVICE: 12/31/2018 SUBJECTIVE: Ms. Meek remains in the intensive care unit, sedated on the ventilator. She is arousable and somewhat interactive. She is postoperative day #4 from closure of her abdomen and postoperative day #5 from small-bowel resection, infected mesh removal, and incision and drainage of necrotizing soft tissue infection. She has been unable to wean from the ventilator. She tires out even while on CPAP. She has been slowly weaning from the ventilator per Dr. Flaherty. She apparently denies any severe pain. Tube feeds were started yesterday at low volume and she is tolerating these well. She did have a small bowel movement earlier today. She is also on low-volume TPN. Her cultures are polymicrobial with multiple gram-negative organisms as well as strep and three separate anaerobic organisms. She remains on Zosyn in treatment of this. OBJECTIVE: VITAL SIGNS: On examination, she is afebrile. Her pulse is 83 and blood pressure is 126/85. LUNGS: Clear to auscultation anteriorly. CARDIAC: Regular rate and rhythm. ABDOMEN: Appears to be soft. Bowel sounds are normoactive. Incision is healing without evidence of infection. Retention sutures remain intact. Drain output is minimal and clear, either serous or serosanguineous fluid. Urine output for yesterday was 1200 mL. LABORATORY DATA: She had no labs drawn today. Her blood sugars are between 150 and 200. ASSESSMENT: She is stable following her abdominal surgery. I will advance her tube feeds to goal and discontinue her TPN. Her antibiotics will be continued. She will be diuresed as she tolerates to assist with her weaning from the ventilator. Continue pulmonary management per Dr. Flaherty. Job ID: [id number]
[2019-01-01] MEDS: Piperacillin/Tazobactam 4.5 GM in Sodium Chloride 0.9% 100 ML IVPB SCH ×5 (00:47→22:58)
[2019-01-01 05:08] LABS: #Basophils 0.1 thou/uL (0.0-0.2); #Eosinphils 0.2 thou/uL (0.0-0.7); #Lymphocytes 0.6 thou/uL (1.20-3.40); #Monocytes 0.3 thou/uL (0.11-0.59); #Neutrophils 5.4 thou/uL (1.40-6.50); %Basophils 1.1 % (0.0-1.0); %Eosinophils 2.8 % (0.0-10.0); %Lymphocytes 8.9 % (21.0-51.0); %Monocytes 4.9 % (0.0-10.0); %Neutrophils 82.3 % (42.0-75.0); Hemoglobin 8.5 g/dL (12.0-16.0); Mean Corpuscular HGB CONC 29.7 g/dL (32.0-36.0); Mean Corpuscular Hemoglobin 26.9 pg (27.0-31.0); Mean Corpuscular Volume 90.4 fL (78.0-98.0); Mean Platelet Volume 7.2 fL (7.4-10.4); Platelet Count 543 thou/uL (130-400); RBC Distribution Width 17.7 % (11.5-14.5); Red Blood Cell (RBC) Count 3.15 mill/uL (4.20-5.40); White Blood Cell (WBC) Count 6.5 thou/uL (4.8-10.8)
[2019-01-01 05:29] LABS: Anion Gap 13 mmol/L (10-20); BUN (Urea Nitrogen) 26 mg/dL (9.8-20.1); Calc. Creatinine Clearance 129 mL/min (70-130); Calcium 8.6 mg/dL (7.8-10.44); Carbon Dioxide 27 mmol/L (23-31); Chloride 108 mmol/L (98-107); Estimated GFR-MDRD 63; Glucose 162 mg/dL (80-115); Potassium 3.8 mmol/L (3.5-5.1); Sodium 144 mmol/L (136-145)
--- NOTE | 2019-01-01 08:06 | RAD ---
PORTABLE CHEST: HISTORY: Respiratory distress. COMPARISON: 12/31/2018 study. FINDINGS: Heart size is enlarged. Endotracheal and NG Tubes are in satisfactory position. There is improvemen t to some of the bibasilar atelectatic lung changes. IMPRESSION: Improving bibasilar atelectasis. POS: [facility]
[2019-01-01] MEDS: Famotidine/PF 20 mg/2ml Vial SLOW IVP SCH ×2 (09:05→21:01)
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
[2019-01-01] MEDS: fentaNYL Citrate/PF 2,000 MCG in Sodium Chloride 0.9% 60 ML IV SCH (10:16)
[2019-01-01] MEDS: Lorazepam 2 MG/ML VIAL SLOW IVP PRN (21:01)
[2019-01-02] MEDS: Piperacillin/Tazobactam 4.5 GM in Sodium Chloride 0.9% 100 ML IVPB SCH ×3 (05:25→17:48)
[2019-01-02] MEDS: Famotidine/PF 20 mg/2ml Vial SLOW IVP SCH ×2 (08:44→21:03)
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
--- NOTE | 2019-01-02 10:06 | RAD ---
CHEST 1 VIEW: Date: 01/02/19 INDICATION: Daily CCU examination. COMPARISON: Prior exam dated 01/01/19. FINDINGS: Stable cardiomegaly and pulmonary vascular congestion. ET tube, gastric catheter, and right subclavia n central venous catheter are unchanged. No pneumothorax is evident. IMPRESSION: Stable exam. POS: BH
[2019-01-02] MEDS: Nystatin Powder 15 GM BOT TOP SCH (21:04)
--- NOTE | 2019-01-02 23:16 | PDOC.GSPN ---
Surgery Progress Note: Subj - Subjective Narrative: Patient extubated this morning and is feeling well. She denies any nausea or vomiting. Tolerating clears. Abdominal incisions look clean. Advance diet as tolerated. Continue physical therapy. May be ready for transfer to [facility] tomorrow Surgery Progress Note: Obj - Vital signs Vital signs: Vital Signs - Most Recent Temp Pulse Resp BP Pulse Ox 98 F 84 17 155/71 H 100 01/02/19 16:00 01/02/19 10:30 01/02/19 06:00 01/02/19 10:30 01/02/19 12:00 Surgery Progress Note: Results - Labs Result Diagrams: 01/01/19 04:05 01/01/19 04:05
[2019-01-03] MEDS: Piperacillin/Tazobactam 4.5 GM in Sodium Chloride 0.9% 100 ML IVPB SCH ×5 (00:44→23:57)
[2019-01-03 05:59] LABS: #Eosinphils 0.2 thou/uL (0.0-0.7); #Lymphocytes 0.7 thou/uL (1.20-3.40); #Monocytes 0.5 thou/uL (0.11-0.59); #Neutrophils 8.7 thou/uL (1.40-6.50); %Basophils 0.1 % (0.0-1.0); %Lymphocytes 6.7 % (21.0-51.0); %Monocytes 5.3 % (0.0-10.0); Hemoglobin 8.6 g/dL (12.0-16.0); Mean Corpuscular HGB CONC 30.4 g/dL (32.0-36.0); Mean Corpuscular Hemoglobin 27.9 pg (27.0-31.0); Mean Corpuscular Volume 91.9 fL (78.0-98.0); Platelet Count 403 thou/uL (130-400); RBC Distribution Width 16.2 % (11.5-14.5); Red Blood Cell (RBC) Count 3.06 mill/uL (4.20-5.40); White Blood Cell (WBC) Count 10.1 thou/uL (4.8-10.8)
[2019-01-03 06:04] LABS: INR-International Normal Ratio 1.7; PTT 28.9 SEC (22.9-36.1); Prothrombin Time 19.6 SEC (12.0-14.7)
[2019-01-03 06:16] LABS: Anion Gap 12 mmol/L (10-20); BUN (Urea Nitrogen) 20 mg/dL (9.8-20.1); Calc. Creatinine Clearance 115 mL/min (70-130); Calcium 8.5 mg/dL (7.8-10.44); Carbon Dioxide 27 mmol/L (23-31); Chloride 110 mmol/L (98-107); Estimated GFR-MDRD 58; Glucose 105 mg/dL (80-115); Potassium 3.5 mmol/L (3.5-5.1); Sodium 145 mmol/L (136-145)
[2019-01-03] MEDS: Famotidine/PF 20 mg/2ml Vial SLOW IVP SCH ×2 (08:41→20:49)
[2019-01-03] MEDS: Nystatin Powder 15 GM BOT TOP SCH ×2 (08:41→20:50)
--- NOTE | 2019-01-03 09:29 | PRG ---
DATE OF SERVICE: 01/03/2019 SUBJECTIVE: She is up in a chair, looks well. She is extubated yesterday. She has had no difficulty since extubation. OBJECTIVE: VITAL SIGNS: On exam, her temperature is 97.8, pulse 85, blood pressure 142/82, and O2 saturations 100% on room air. HEENT: Unremarkable. NECK: No adenopathy or JVD. CHEST: Clear to auscultation. CARDIAC: S1 and S2. Regular. ABDOMEN: Obese and distended. Diminished bowel sounds. EXTREMITIES: No overt edema. LABORATORY DATA: White blood cell count 10, hematocrit 28.1, and platelet count 403. INR is 1.7. Sodium 145, potassium 3.5, chloride 110, CO2 of 27, BUN 20, creatinine 0.9, and glucose 105. ASSESSMENT: 1. Status post laparotomy. 2. Status post acute respiratory failure requiring mechanical ventilation. PLAN: The patient can be transferred out to the surgical floor for further therapy. She apparently is on warfarin as an outpatient. If anticoagulation is desired, then the warfarin can be restarted. I will leave that up to the Surgical Service. Job ID: [id number]
--- NOTE | 2019-01-03 16:31 | PDOC.GSPN ---
Surgery Progress Note: Subj - Subjective Narrative: Result is feeling pretty good. She is breathing easily. She got out of bed to a chair to come up to the floor but has not been ambulating yet. Her incisions look good. The drainage from one of her JPs is pretty cloudy but the other one is clear. She is tolerating her diet. Vitals look good. Assessment/plan: Doing well overall. One of the JPs looks fairly cloudy. I believe this is the one in the subcutaneous space. She has some purulent drainage from her [place] but this is to be expected. I'm going to order an abdominal binder for when she gets up and ask physical therapy to work with her. She would like to go home after discharge but is not mobile enough yet. Surgery Progress Note: Obj - Vital signs Vital signs: Vital Signs - Most Recent Temp Pulse Resp BP Pulse Ox 98.4 F 84 16 153/83 H 96 01/03/19 16:14 01/03/19 16:14 01/03/19 16:14 01/03/19 16:14 01/03/19 16:14 Surgery Progress Note: Results - Labs Result Diagrams: 01/03/19 05:45 01/03/19 05:45 Lab results: Laboratory Results - last 24 hr 01/03/19 01/03/19 01/03/19 05:45 05:45 05:45 WBC 10.1 RBC 3.06 L Hgb 8.6 L Hct 28.1 L MCV 91.9 MCH 27.9 MCHC 30.4 L RDW 16.2 H Plt Count 403 H MPV 7.0 L Neutrophils % 86.0 H Neutrophils % (Manual) Not Reportable Lymphocytes % 6.7 L Monocytes % 5.3 Eosinophils % 2.0 Basophils % 0.1 Neutrophils # 8.7 H Lymphocytes # 0.7 L Monocytes # 0.5 Eosinophils # 0.2 Basophils # 0.0 PT 19.6 H INR 1.7 APTT 28.9 Sodium 145 Potassium 3.5 Chloride 110 H Carbon Dioxide 27 Anion Gap 12 BUN 20 Creatinine 0.97 Estimated GFR (MDRD) 58 Glucose 105 Calcium 8.5
[2019-01-03] MEDS ORDERED: Warfarin Sodium 1 MG TAB PO SCH (17:00)
[2019-01-03] MEDS: Enoxaparin Sodium 40 MG/0.4 ML SYRINGE SC SCH (20:50)
[2019-01-04] MEDS: Piperacillin/Tazobactam 4.5 GM in Sodium Chloride 0.9% 100 ML IVPB SCH ×4 (05:29→23:52)
[2019-01-04 06:00] LABS: #Eosinphils 0.2 thou/uL (0.0-0.7); #Lymphocytes 0.7 thou/uL (1.20-3.40); #Monocytes 0.3 thou/uL (0.11-0.59); #Neutrophils 7.6 thou/uL (1.40-6.50); %Monocytes 3.8 % (0.0-10.0); %Neutrophils 86.1 % (42.0-75.0); Mean Corpuscular HGB CONC 31.2 g/dL (32.0-36.0); Mean Corpuscular Hemoglobin 28.4 pg (27.0-31.0); Mean Corpuscular Volume 91.1 fL (78.0-98.0); Mean Platelet Volume 7.1 fL (7.4-10.4); Platelet Count 440 thou/uL (130-400); RBC Distribution Width 17.2 % (11.5-14.5); Red Blood Cell (RBC) Count 2.82 mill/uL (4.20-5.40); White Blood Cell (WBC) Count 8.8 thou/uL (4.8-10.8)
[2019-01-04 06:04] LABS: INR-International Normal Ratio 1.6; Prothrombin Time 19.1 SEC (12.0-14.7)
[2019-01-04 06:10] LABS: Anion Gap 12 mmol/L (10-20); BUN (Urea Nitrogen) 16 mg/dL (9.8-20.1); Calc. Creatinine Clearance 117 mL/min (70-130); Calcium 8.2 mg/dL (7.8-10.44); Carbon Dioxide 26 mmol/L (23-31); Chloride 110 mmol/L (98-107); Estimated GFR-MDRD 56; Glucose 104 mg/dL (80-115); Potassium 3.3 mmol/L (3.5-5.1); Sodium 145 mmol/L (136-145)
[2019-01-04] MEDS: Famotidine/PF 20 mg/2ml Vial SLOW IVP SCH (08:05)
[2019-01-04] MEDS: Enoxaparin Sodium 40 MG/0.4 ML SYRINGE SC SCH ×2 (08:05→20:15)
[2019-01-04] MEDS: Nystatin Powder 15 GM BOT TOP SCH ×2 (08:06→20:16)
--- NOTE | 2019-01-04 15:02 | PRG ---
DATE OF SERVICE: 01/04/2019 SUBJECTIVE: Ms. Meek did well over the weekend, was extubated. She is now on the surgical bed. OBJECTIVE: VITAL SIGNS: She is afebrile. Heart rate 83, respiratory rate 12, oximetry is 94% on room air, blood pressure 146/76. LUNGS: Clear. HEART: Regular rhythm. ABDOMEN: Soft. She has a VAC on the right lower quadrant. LABORATORY DATA: White count 8.8, hemoglobin 8.0, and platelets 440,000, which I suspect it is just reactive thrombocytosis. Electrolytes are unremarkable. Potassium 3.3. IMPRESSION: Status post peritonitis with several days of mechanical ventilation in the perioperative period, clinically stable at this point. Obesity and deconditioning are big factor from the standpoint of lengthening the time of her recovery from this. Job ID: [id number]
[2019-01-04] MEDS: Ferrous Sulfate 325 MG TAB PO SCH (17:22)
[2019-01-04] MEDS: Warfarin Sodium 5 MG TAB PO SCH (17:23)
--- NOTE | 2019-01-04 19:06 | PRG ---
DATE OF SERVICE: 01/04/2019 SUBJECTIVE: Ms. Meek is postoperative day #10 from laparotomy with small-bowel resection and debridement of necrotizing abdominal wall infection and postoperative day #8 of final closure of abdominal wall with retention sutures. Over the weekend, she was extubated and transferred to the surgical floor. She tells me she is tolerating her diet, and her bowels are moving. She still had a Galindo catheter in place and still has two drains on the left side of her abdomen. She has a wound VAC over the large abscess cavity in the right lower quadrant. She notes appropriate abdominal pain. She also notes that she is very weak and has inability to stand, much less walk. She is working with physical therapy. OBJECTIVE: VITAL SIGNS: On examination today, she is afebrile, pulse is 81, blood pressure 161/83. LUNGS: Clear to auscultation. ABDOMEN: Soft, nontender. Her midline incision appears to be healing appropriately. Three retention sutures are all still intact. There is a Yara drain exiting the lower abdominal wound and a wound VAC in place in the right lower quadrant. EXTREMITIES: Unremarkable. LABORATORY DATA: Her basic metabolic panel is unremarkable. She has slightly low potassium at 3.3. Her CBC shows a stable hemoglobin of 8 with a white blood cell count of 8.8. Her coagulation panel reveals an INR of 1.6. ASSESSMENT AND PLAN: She is doing well in regard to her surgery. My hopes are that her midline abdominal incision will stay healed without infectious problems. Today, I will remove the intraabdominal drain and the subcutaneous drain. I will also have her Galindo catheter removed. I will initiate additional nutritional supplementation to help her with wound healing. It was noted that her last albumin level was 2.1 on December 28. She is approaching the time that she does not really need to be here in the hospital anymore. I will therefore initiate attempts at screening for placement, either rehabilitation or senior living facility. I will try and arrange for a home wound VAC. I plan to leave the Yara drain in her lower abdominal wound until she is about 2 weeks out from surgery. She continues to receive Zosyn in treatment for multiple separate cultured organisms. At some point, I will need to transition this to an oral medication. I will probably culture the drainage coming from her Yara drain to see if that might guide further treatment. Finally, the two other issues that are potentially of problem or concern are her huge right-sided abdominal hernia and the potential for further infected mesh being within her wound as I could not make an exhaustive attempt to remove all infected mesh. Hopefully, these two issues will be able to be addressed after she recuperates from this hospitalization. Job ID: [id number]
[2019-01-04] MEDS: Famotidine 20 MG TAB PO SCH (20:14)
[2019-01-05] MEDS: Piperacillin/Tazobactam 4.5 GM in Sodium Chloride 0.9% 100 ML IVPB SCH ×4 (05:20→23:57)
[2019-01-05 05:44] LABS: #Eosinphils 0.2 thou/uL (0.0-0.7); #Lymphocytes 0.7 thou/uL (1.20-3.40); #Monocytes 0.5 thou/uL (0.11-0.59); #Neutrophils 7.7 thou/uL (1.40-6.50); %Basophils 0.1 % (0.0-1.0); %Lymphocytes 8.1 % (21.0-51.0); %Monocytes 5.3 % (0.0-10.0); %Neutrophils 84.4 % (42.0-75.0); Hemoglobin 7.9 g/dL (12.0-16.0); Mean Corpuscular HGB CONC 30.1 g/dL (32.0-36.0); Mean Corpuscular Hemoglobin 27.1 pg (27.0-31.0); Mean Corpuscular Volume 90.1 fL (78.0-98.0); Mean Platelet Volume 7.2 fL (7.4-10.4); Platelet Count 584 thou/uL (130-400); RBC Distribution Width 18.1 % (11.5-14.5); Red Blood Cell (RBC) Count 2.92 mill/uL (4.20-5.40); White Blood Cell (WBC) Count 9.1 thou/uL (4.8-10.8)
[2019-01-05 05:57] LABS: INR-International Normal Ratio 1.5; Prothrombin Time 18.4 SEC (12.0-14.7)
--- NOTE | 2019-01-05 06:01 | PDOC.GSPN ---
Surgery Progress Note: Subj - Subjective Narrative: Mrs. Meek is a 63 year old female who is day 11 S/P laparotomy with small bowel resection and debridement of necrotizing abdominal wall infection, and day 9 S/P abdominal wall closure with retention sutures. Yesterday, her intraabdominal and subcutaneous drains were removed. She reports there was pain at the drain sites immediately following removal of the drains, which has since resolved. Her Galindo catheter was also removed yesterday and she has been using the bedside toilet and reports no difficulties with urination or bowel movements. She continues to have a wound vac in place in the right lower quadrant over her abscess cavity, but reports no pain at this site. She reports working with physical therapy yesterday but was unable to get into the arm chair or attempt walking at that time. She reports that the abdominal binder has improved discomfort with getting out of bed, however she is still extremely weak and deconditioned. She will continue working with physical therapy. She is tolerating fiber restricted diet well, though she reports decreased appetite. She denies nausea and vomiting. Surgery Progress Note: Obj - Vital signs Vital signs: Vital Signs - Most Recent Temp Pulse Resp BP Pulse Ox 98.0 F 72 16 144/81 H 96 01/05/19 04:47 01/05/19 04:47 01/05/19 04:47 01/05/19 04:47 01/05/19 04:47 - Physical Exam General: no distress, no pain, obese Cardiovascular: regular rate and rhythm, no murmur Respiratory: clear to auscultation, normal respiratory effort Abdomen: soft, non tender, other (normal active bowel sounds; patient has a chronic large right-sided abdominal hernia) Wound: healing well (with some erythema around the retention sutures. All dressings are intact over the prior drain sites, with some discharge present on the dressings. She has a chago drain with wound vac in the right lower quadrant with 75 mL serosanguinous fluid.) Additional exam: Extremities: bilateral pedal edema. Surgery Progress Note: Results - Labs Result Diagrams: 01/05/19 05:00 01/04/19 05:15 Lab results: Laboratory Results - last 24 hr 01/05/19 05:00 WBC 9.1 RBC 2.92 L Hgb 7.9 L Hct 26.3 L MCV 90.1 MCH 27.1 MCHC 30.1 L RDW 18.1 H Plt Count 584 H MPV 7.2 L Neutrophils % 84.4 H Neutrophils % (Manual) Not Reportable Lymphocytes % 8.1 L Monocytes % 5.3 Eosinophils % 2.0 Basophils % 0.1 Neutrophils # 7.7 H Lymphocytes # 0.7 L Monocytes # 0.5 Eosinophils # 0.2 Basophils # 0.0 H/H and WBC count are stable. Surgery Progress Note: A/P - Plan Plan: Patient is recovering well and continuing to make improvements. We will continue to monitor the output from the wound vac and plan to culture the contents for guidance in antibiotic choice in order to switch her from Zosyn to an oral antibiotic. Plan to continue with physical therapy, using the abdominal binder for support, in order to regain strength. Continue diet as tolerated in order to continue aiding in the wound healing process. Will follow up with business case analyst to determine patient's status on transition to a rehab facility. [place] drain will remain in place until 2 weeks following surgery.
[2019-01-05 06:03] LABS: Anion Gap 8 mmol/L (10-20); BUN (Urea Nitrogen) 17 mg/dL (9.8-20.1); Calc. Creatinine Clearance 115 mL/min (70-130); Calcium 8.4 mg/dL (7.8-10.44); Carbon Dioxide 29 mmol/L (23-31); Chloride 110 mmol/L (98-107); Estimated GFR-MDRD 56; Glucose 106 mg/dL (80-115); Potassium 3.1 mmol/L (3.5-5.1); Sodium 144 mmol/L (136-145)
[2019-01-05 06:05] LABS: ALT (SGPT) 15 U/L (8-55); AST (SGOT) 17 U/L (5-34); Albumin 2.3 g/dL (3.4-4.8); Alkaline Phosphatase 88 U/L (40-150); Bilirubin, Direct 0.2 mg/dL (0.1-0.3); Bilirubin, Total 0.3 mg/dL (0.2-1.2); Protein, Total 6.2 g/dL (6.0-8.3)
[2019-01-05] MEDS ORDERED: Potassium Chloride 20 MEQ TAB PO SCH ×2 (07:45→13:00)
[2019-01-05] MEDS: Ferrous Sulfate 325 MG TAB PO SCH ×2 (09:24→17:30)
[2019-01-05] MEDS: Enoxaparin Sodium 40 MG/0.4 ML SYRINGE SC SCH ×2 (09:25→21:42)
[2019-01-05] MEDS: Famotidine 20 MG TAB PO SCH ×2 (09:25→21:42)
[2019-01-05] MEDS: Nystatin Powder 15 GM BOT TOP SCH ×2 (09:25→21:43)
[2019-01-05] MEDS: Amlodipine 5 MG TAB PO SCH (09:25)
[2019-01-05] MEDS ORDERED: Warfarin Sodium 5 MG TAB PO SCH (17:00)
[2019-01-05] MEDS: Warfarin Sodium 5 MG TAB PO SCH (17:31)
[2019-01-06] MEDS: Piperacillin/Tazobactam 4.5 GM in Sodium Chloride 0.9% 100 ML IVPB SCH ×3 (05:56→16:59)
[2019-01-06 06:26] LABS: #Eosinphils 0.1 thou/uL (0.0-0.7); #Lymphocytes 0.9 thou/uL (1.20-3.40); #Monocytes 0.5 thou/uL (0.11-0.59); #Neutrophils 7.3 thou/uL (1.40-6.50); %Basophils 0.2 % (0.0-1.0); %Eosinophils 1.4 % (0.0-10.0); %Lymphocytes 10.2 % (21.0-51.0); %Monocytes 6.1 % (0.0-10.0); %Neutrophils 82.1 % (42.0-75.0); Hemoglobin 8.2 g/dL (12.0-16.0); Mean Corpuscular HGB CONC 29.3 g/dL (32.0-36.0); Mean Corpuscular Hemoglobin 26.6 pg (27.0-31.0); Mean Corpuscular Volume 90.8 fL (78.0-98.0); Mean Platelet Volume 7.2 fL (7.4-10.4); Platelet Count 598 thou/uL (130-400); RBC Distribution Width 17.9 % (11.5-14.5); Red Blood Cell (RBC) Count 3.06 mill/uL (4.20-5.40); White Blood Cell (WBC) Count 8.9 thou/uL (4.8-10.8)
[2019-01-06 06:31] LABS: INR-International Normal Ratio 1.7; Prothrombin Time 19.8 SEC (12.0-14.7)
[2019-01-06 06:46] LABS: Anion Gap 12 mmol/L (10-20); BUN (Urea Nitrogen) 14 mg/dL (9.8-20.1); Calc. Creatinine Clearance 115 mL/min (70-130); Calcium 8.5 mg/dL (7.8-10.44); Carbon Dioxide 25 mmol/L (23-31); Chloride 111 mmol/L (98-107); Estimated GFR-MDRD 56; Glucose 98 mg/dL (80-115); Potassium 3.4 mmol/L (3.5-5.1); Sodium 145 mmol/L (136-145)
[2019-01-06] MEDS: Amlodipine 5 MG TAB PO SCH (09:02)
[2019-01-06] MEDS: Ferrous Sulfate 325 MG TAB PO SCH ×2 (09:02→16:59)
[2019-01-06] MEDS: Famotidine 20 MG TAB PO SCH ×2 (09:03→22:31)
[2019-01-06] MEDS: Enoxaparin Sodium 40 MG/0.4 ML SYRINGE SC SCH ×2 (09:03→22:31)
[2019-01-06] MEDS: Nystatin Powder 15 GM BOT TOP SCH ×2 (09:03→22:32)
--- NOTE | 2019-01-06 09:32 | PRG ---
DATE OF SERVICE: 01/06/2019 SUBJECTIVE: Ms. Meek is resting in bed on the surgical floor. She notes that she feels a little better today than she did yesterday. She worked with Physical Therapy. She has been able to stand at bedside. She still requires extensive support to help her get out of bed and/or to use the bedside commode. She is voiding and having bowel movements. She is tolerating her diet without vomiting. OBJECTIVE: VITAL SIGNS: On examination, she is afebrile, pulse 78, and blood pressure 149/87. Her exact urine output is unknown, but she is voiding. LUNGS: Clear to auscultation. ABDOMEN: Soft. Bowel sounds are present and normoactive. Midline incision appears to be healing appropriately. There is some potentially concerning drainage from the upper portion of the incision underlying the upper retention suture. The drain site from her subcutaneous drain continues to drain a small amount of potentially concerning purulent-appearing fluid. Her wound VAC remains in place in the right lower quadrant. LABORATORY DATA: Her CBC is unremarkable with hemoglobin 8.2, white blood cell count of 8.9. Chemistry panel shows improved potassium up to 3.4 after potassium supplementation yesterday. Her coag panel reveals that her INR is slowly going back up and it is 1.7 today up from 1.5 yesterday. ASSESSMENT AND PLAN: The patient is making slow recovery after her big abdominal surgery. Cultures in regard to the drainage from her Yara drain are still not complete. She will be continued on Zosyn for now. Still tentatively planning discharge/transfer to a rehab or nursing home facility in the next day or so. Job ID: [id number]
--- NOTE | 2019-01-06 14:59 | PRG ---
DATE OF SERVICE: 01/06/2019 SUBJECTIVE: Domenica Meek has no complaints. I was in the room while they are changing her wound VAC and her dressings. She has good granulation tissue in her wounds. OBJECTIVE: VITAL SIGNS: She is afebrile, heart rate is 81, blood pressure 149/87, respiratory rate 16, oximetry is 95% on room air, and blood pressure 158/82. LUNGS: Clear. HEART: Regular rate and rhythm. ABDOMEN: Soft and nontender. EXTREMITIES: Without asymmetry or edema. NEUROLOGIC: Nonfocal. LABORATORY DATA: White count 8.9, hemoglobin 8.2, and platelets 598. Electrolytes remarkable only for potassium of 3.4, creatinine is 1.01. IMPRESSION: Status post drainage of abdominal wall abscess, removal of small bowel that was connecting with mesh, and treatment of peritonitis. Overall, she is doing much better than I expected. She has improved significantly over the last few days. Job ID: [id number]
[2019-01-06] MEDS: Warfarin Sodium 5 MG TAB PO SCH (16:58)
[2019-01-07] MEDS: Piperacillin/Tazobactam 4.5 GM in Sodium Chloride 0.9% 100 ML IVPB SCH ×4 (00:23→17:18)
[2019-01-07 06:19] LABS: #Eosinphils 0.2 thou/uL (0.0-0.7); #Lymphocytes 0.7 thou/uL (1.20-3.40); #Monocytes 0.5 thou/uL (0.11-0.59); #Neutrophils 5.7 thou/uL (1.40-6.50); %Basophils 0.7 % (0.0-1.0); %Eosinophils 2.7 % (0.0-10.0); %Lymphocytes 9.8 % (21.0-51.0); %Monocytes 7.5 % (0.0-10.0); %Neutrophils 79.3 % (42.0-75.0); Hemoglobin 7.9 g/dL (12.0-16.0); Mean Corpuscular HGB CONC 29.9 g/dL (32.0-36.0); Mean Corpuscular Hemoglobin 27.2 pg (27.0-31.0); Mean Corpuscular Volume 90.9 fL (78.0-98.0); Mean Platelet Volume 7.1 fL (7.4-10.4); Platelet Count 585 thou/uL (130-400); RBC Distribution Width 18.3 % (11.5-14.5); White Blood Cell (WBC) Count 7.2 thou/uL (4.8-10.8)
[2019-01-07 06:24] LABS: Prothrombin Time 22.7 SEC (12.0-14.7)
[2019-01-07 06:39] LABS: Anion Gap 11 mmol/L (10-20); BUN (Urea Nitrogen) 14 mg/dL (9.8-20.1); Calc. Creatinine Clearance 125 mL/min (70-130); Calcium 8.1 mg/dL (7.8-10.44); Carbon Dioxide 24 mmol/L (23-31); Chloride 110 mmol/L (98-107); Estimated GFR-MDRD 63; Glucose 88 mg/dL (80-115); Sodium 142 mmol/L (136-145)
[2019-01-07] MEDS: Enoxaparin Sodium 40 MG/0.4 ML SYRINGE SC SCH ×2 (09:13→20:53)
[2019-01-07] MEDS: Famotidine 20 MG TAB PO SCH ×2 (09:13→20:53)
[2019-01-07] MEDS: Amlodipine 5 MG TAB PO SCH (09:13)
[2019-01-07] MEDS: Ferrous Sulfate 325 MG TAB PO SCH ×2 (09:13→16:53)
[2019-01-07] MEDS: Nystatin Powder 15 GM BOT TOP SCH ×2 (09:14→20:57)
[2019-01-07] MEDS ORDERED: Fluconazole In NaCl,Iso-Osm 400 MG in Premix Bag 1 BAG IVPB SCH (13:00)
--- NOTE | 2019-01-07 16:19 | PRG ---
DATE OF SERVICE: 01/07/2019 SUBJECTIVE: Domenica Meek has no new complaints. OBJECTIVE: VITAL SIGNS: Have been stable. She is afebrile. Heart rate is 77, respiratory rate is 18, oximetry is 95% on room air, blood pressure is 162/82. LUNGS: Clear. HEART: Regular rhythm. ABDOMEN: Soft. LABORATORY DATA: White count 7.2, hemoglobin 7.9, platelets 585. Sodium 142, potassium 3, chloride 110, bicarb 24, BUN 14, creatinine 0.9. IMPRESSION AND PLAN: Status post peritonitis, several days mechanical ventilation with deconditioning, slowly improving. We will continue to follow. If she is stable over the next 24 hours, we will probably sign off. Job ID: [id number]
[2019-01-07] MEDS: Warfarin Sodium 5 MG TAB PO SCH (16:53)
[2019-01-07] MEDS ORDERED: Potassium Chloride 20 MEQ TAB PO SCH (21:15)
--- NOTE | 2019-01-07 21:37 | PRG ---
DATE OF SERVICE: 01/07/2019 SUBJECTIVE: Ms. Meek remains hospitalized on the surgical floor. She has no new complaints. She is tolerating her diet, but has decreased appetite. She is urinating and having bowel movements. She is now able to get out of bed and use the bedside commode. She is also beginning to increase her activity with the help of physical therapy. The drain site that was cultured yesterday revealed yeast. For this, she was started on Diflucan today. The drain culture from her abdominal wall reveals presumptive Pseudomonas and E coli. Final susceptibilities of this culture is pending. I examined her wound with wound care yesterday and the right lower quadrant abscess cavity is healing nicely. OBJECTIVE: VITAL SIGNS: On examination, she is afebrile. Pulse 77, blood pressure 133/75. LUNGS: Clear to auscultation. ABDOMEN: Soft with normal bowel sounds. Her midline incision seems to be making reasonable progress. I am still concerned about the drainage coming from the drain site and a previous subcutaneous drain. She still has significant drainage from the Yara drain, that is draining at the site of her internal infected mesh. LABORATORY DATA: Her CBC is unchanged with a hemoglobin of 7.9, white blood cell count of 7.2. Her chemistry panel is unremarkable, although her potassium level is low again. Her coagulation panel reveals that her INR has come up to 2.0. ASSESSMENT AND PLAN: In summary, she is stable. Her abscess cavity in the right lower quadrant is healing nicely. I am concerned about the healing of her midline abdominal wound and also concerned about persistent drainage associated with Yara drain. I will plan to remove the Yara drain tomorrow when she is 2 weeks out from her initial surgery. Her antibiotics will be culture specific once I have culture results. She continues on Zosyn for now. Job ID: [id number]
[2019-01-08] MEDS ORDERED: Potassium Chloride 20 MEQ TAB PO SCH (06:00)
[2019-01-08] MEDS: Amlodipine 5 MG TAB PO SCH (08:40)
[2019-01-08] MEDS: Ferrous Sulfate 325 MG TAB PO SCH ×2 (08:40→17:26)
[2019-01-08] MEDS: Famotidine 20 MG TAB PO SCH ×2 (08:40→20:26)
[2019-01-08] MEDS: Enoxaparin Sodium 40 MG/0.4 ML SYRINGE SC SCH ×2 (08:41→20:26)
[2019-01-08] MEDS: Nystatin Powder 15 GM BOT TOP SCH ×2 (08:42→20:27)
[2019-01-08] MEDS ORDERED: Fluconazole In NaCl,Iso-Osm 400 MG in Premix Bag 1 BAG IVPB SCH (09:00)
--- NOTE | 2019-01-08 09:35 | PRG ---
DATE OF SERVICE: 01/08/2019 SUBJECTIVE: Ms. 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 She has been more or less ready for discharge for a week and have not really done anything with her since her surgery 12 days ago. She is eating well. Bowel function is good. She is urinating and she is increasing her strength progressively. She is still unable to walk without assistance. She still has a wound VAC in the right lower quadrant abdominal wound. She has retention sutures in her midline abdominal incision. There is a small amount of drainage from the subcutaneous drain tract that had yeast within it. Today, I removed the Yara drain from her lower abdominal drainage tract. OBJECTIVE: GENERAL: On examination, she remains afebrile. VITAL SIGNS: Normal. LUNGS: Clear to auscultation. ABDOMEN: Benign. Midline wound is healing appropriately and 3 retention sutures are still intact. LABORATORY DATA: I did not obtain any labs today. ASSESSMENT: She remains stable and ready for discharge to [facility] facility. I will continue her on Diflucan for the yeast in her subcutaneous drainage tract. I discontinued her Zosyn yesterday after 2 weeks of receiving this. I am awaiting the culture results of her lower abdominal drainage tract, so I can have directed antibiotic therapy against the Pseudomonas and E. coli. She remains ready for discharge to [facility] facility at anytime. Job ID: [id number]
--- NOTE | 2019-01-08 12:11 | PRG ---
DATE OF SERVICE: 01/08/2019 SUBJECTIVE: Ms. Meek is doing well. She has no complaints. She is getting wound care. OBJECTIVE: VITAL SIGNS: When I examined her, she is afebrile. Heart rate 82, respiratory rate is 20, oximetry is 96% on room air, and blood pressure 134/70. LUNGS: Clear. HEART: Regular rhythm. ABDOMEN: Soft. LABORATORY DATA: There is no new lab today. IMPRESSION: Status post peritonitis after mesh eroded into small bowel. Her wound issues seem to be stable. There are no acute pulmonary issues, so we will follow from a distance. Job ID: [id number]
[2019-01-08] MEDS: Warfarin Sodium 5 MG TAB PO SCH (17:26)
[2019-01-09] MEDS: Fluconazole 100 MG TAB PO SCH (08:52)
[2019-01-09] MEDS: Nystatin Powder 15 GM BOT TOP SCH ×2 (08:52→20:21)
[2019-01-09] MEDS: Ferrous Sulfate 325 MG TAB PO SCH ×2 (08:52→17:20)
[2019-01-09] MEDS: Enoxaparin Sodium 40 MG/0.4 ML SYRINGE SC SCH ×2 (08:52→20:22)
[2019-01-09] MEDS: Famotidine 20 MG TAB PO SCH ×2 (08:52→20:22)
[2019-01-09] MEDS: Amlodipine 5 MG TAB PO SCH (08:53)
--- NOTE | 2019-01-09 10:14 | PRG ---
DATE OF SERVICE: 01/09/2019 SUBJECTIVE: The patient is status post abdominal wall debridement. She says she is doing well. She says she is having no pain. No nausea. She is eating diet. Her bowels are functioning. OBJECTIVE: VITAL SIGNS: Her temperature is 97.8, pulse 77, and blood pressure 145/74. GENERAL: She is awake, alert, morbidly obese. ABDOMEN: Soft. She has retention sutures in. There is some mild erythema around the sutures. She has a wound VAC in the right lower quadrant and dressings to the left lower quadrant. They look clean. LABORATORY DATA: No new laboratory today. ASSESSMENT: Doing well. Awaiting rehab. PLAN: Transfer to rehab when a bed is available. Job ID: [id number]
[2019-01-09] MEDS: Warfarin Sodium 5 MG TAB PO SCH (17:20)
[2019-01-09] MEDS: Ciprofloxacin 500 MG TAB PO SCH (20:22)
[2019-01-09 23:46] LABS: Anion Gap 12 mmol/L (10-20); BUN (Urea Nitrogen) 13 mg/dL (9.8-20.1); Calc. Creatinine Clearance 141 mL/min (70-130); Calcium 8.3 mg/dL (7.8-10.44); Carbon Dioxide 22 mmol/L (23-31); Chloride 107 mmol/L (98-107); Estimated GFR-MDRD 73; Glucose 98 mg/dL (80-115); Potassium 3.1 mmol/L (3.5-5.1); Sodium 138 mmol/L (136-145)
[2019-01-09 23:50] LABS: Hemoglobin 8.5 g/dL (12.0-16.0); Mean Corpuscular HGB CONC 29.7 g/dL (32.0-36.0); Mean Corpuscular Hemoglobin 26.9 pg (27.0-31.0); Mean Corpuscular Volume 90.7 fL (78.0-98.0); Mean Platelet Volume 6.8 fL (7.4-10.4); Platelet Count 630 thou/uL (130-400); RBC Distribution Width 18.4 % (11.5-14.5); Red Blood Cell (RBC) Count 3.15 mill/uL (4.20-5.40); White Blood Cell (WBC) Count 8.5 thou/uL (4.8-10.8)
[2019-01-10 00:05] LABS: #Eosinphils 0.1 thou/uL (0.0-0.7); #Monocytes 0.8 thou/uL (0.11-0.59); #Neutrophils 6.5 thou/uL (1.40-6.50); %Basophils 0.4 % (0.0-1.0); %Eosinophils 1.7 % (0.0-10.0); %Lymphocytes 11.4 % (21.0-51.0); %Monocytes 9.8 % (0.0-10.0); %Neutrophils 76.7 % (42.0-75.0); Anisocytosis SLIGHT = 6-15 cells (100X) (0-5/hpf); MDiff Complete? YES; Platelet Morphology Comment Appears Increased
[2019-01-10] MEDS ORDERED: Potassium Chloride 20 MEQ TAB PO SCH (03:45)
[2019-01-10] MEDS ORDERED: Magnesium 2 GM/50 ML 2 GM in Premix Bag 1 BAG IVPB SCH (04:45)
[2019-01-10] MEDS: Ciprofloxacin 500 MG TAB PO SCH ×2 (05:05→20:41)
[2019-01-10] MEDS: Famotidine 20 MG TAB PO SCH ×2 (08:34→20:41)
[2019-01-10] MEDS: Amlodipine 5 MG TAB PO SCH (08:34)
[2019-01-10] MEDS: Ferrous Sulfate 325 MG TAB PO SCH ×2 (08:34→16:56)
[2019-01-10] MEDS: Enoxaparin Sodium 40 MG/0.4 ML SYRINGE SC SCH (08:34)
[2019-01-10] MEDS: Fluconazole 100 MG TAB PO SCH (08:34)
[2019-01-10] MEDS: Nystatin Powder 15 GM BOT TOP SCH ×2 (08:35→20:43)
[2019-01-10 10:32] LABS: Anion Gap 12 mmol/L (10-20); BUN (Urea Nitrogen) 12 mg/dL (9.8-20.1); Calc. Creatinine Clearance 142 mL/min (70-130); Calcium 8.5 mg/dL (7.8-10.44); Carbon Dioxide 21 mmol/L (23-31); Chloride 107 mmol/L (98-107); Estimated GFR-MDRD 73; Glucose 115 mg/dL (80-115); Phosphorus 2.1 mg/dL (2.3-4.7); Potassium 3.2 mmol/L (3.5-5.1); Sodium 137 mmol/L (136-145)
[2019-01-10 10:37] LABS: Troponin I Less than 0.010 ng/mL (< 0.028)
[2019-01-10] MEDS ORDERED: Metoprolol Tartrate 25 MG TAB PO SCH (11:15)
--- NOTE | 2019-01-10 11:36 | PRG ---
DATE OF SERVICE: 01/10/2019 SUBJECTIVE: The patient had episode of SVT, transferred to telemetry. She has had none since then. She was asymptomatic. Talked to the hospitalist who feels that it was an electrolyte issue that has been corrected. She is having no pain. She is eating. Bowels are functioning. OBJECTIVE: VITAL SIGNS: Her temperature is 98.7, pulse 77, blood pressure 141/76. GENERAL: She looks good. ABDOMEN: Soft, nondistended, morbidly obese. LABORATORY DATA: Her white count is 8.5, hemoglobin and hematocrit 8.5 and 28.6, platelet count 630. Her potassium was down to 3, up to 3.2 now. Magnesium was low, it was 1.5, now it is 2. ASSESSMENT: Supraventricular tachycardia, resolved. PLAN: Awaiting rehab transfer. Job ID: [id number]
[2019-01-10] MEDS: K-Phos Neutral 250 MG TAB PO SCH ×3 (11:55→20:41)
--- NOTE | 2019-01-10 14:39 | PRG ---
DATE OF SERVICE: 01/10/2019 SUBJECTIVE: The patient is a 63-year-old white female with hypertension, obesity, and pulmonary embolism in the past on anticoagulation, presented to the emergency room 2 weeks ago with abdominal discomfort. Workup was consistent with bowel perforation into an area of large hernia requiring laparotomy. She was monitored in the intensive care unit post surgery. She was later transferred to the surgical floor. Last night, the patient developed tachyarrhythmia, for which she was transferred to the telemetry unit. The patient denies any chest discomfort, shortness of breath, fever, chills, or cardiac issues in the past. No diaphoresis, nausea, vomiting, syncope, or focal neurologic deficit appreciated. OBJECTIVE: VITAL SIGNS: Temperature 98.6, pulse rate of 77, respirations of 18, blood pressure of 141/76, and O2 saturation 97% on room air. GENERAL: A 63-year-old female, in no apparent distress. Denies any pain. LUNGS: Showed diminished air entry at bilateral bases. No wheezing, rales, or rhonchi. HEART: S1 and S2 present. Regular rate and rhythm. No rubs or gallops. ABDOMEN: Soft. Bowel sounds present. No guarding or rigidity. EXTREMITIES: No edema or calf tenderness. NEUROLOGIC: Grossly nonfocal. PSYCHIATRIC: Alert, awake, and oriented x3. Intake of 200, output 400. Weight of 271 pounds. CURRENT MEDICATIONS: Reviewed. The patient is on: 1. Oral ciprofloxacin. 2. Lovenox 40 mg subcu b.i.d. 3. Pepcid. 4. Iron sulfate. 5. Diflucan. 6. Warfarin. LABORATORY FINDINGS: INR on 07 January 2019 was 2.0. Sodium 137, potassium 3.2, chloride 107, bicarb 21, BUN 12, creatinine 0.8, phosphorus 2.1, and magnesium 1.5. IMAGING STUDIES: Chest x-ray by my review last week was negative for acute findings. Telemetry monitoring by my review showed multifocal atrial tachycardia. IMPRESSION: 1. Supraventricular tachycardia, probably secondary to electrolyte imbalance. 2. History of pulmonary embolism, on anticoagulation. 3. Hypertension. 4. Morbid obesity with a BMI of 49.6. 5. Electrolyte abnormalities. The patient has hypokalemia, hypomagnesemia, and hypophosphatemia. 6. Hyponatremia. 7. Status post laparotomy for bowel perforation. PLAN: Electrolytes will be replaced. We will continue telemetry monitoring. We will discontinue amlodipine and start oral metoprolol. PT/INR will be checked. I discussed with Dr. Vasquez, who suggested to discontinue Lovenox 40 mg b.i.d. We will recheck labs in a.m. Plan was discussed with the patient in detail. She stated understanding. Outpatient followup with Cardiology is recommended. The patient will require an echocardiogram as outpatient. Job ID: [id number]
[2019-01-10 14:47] LABS: INR-International Normal Ratio 3.5; Prothrombin Time 34.8 SEC (12.0-14.7)
[2019-01-10] MEDS: Metoprolol Tartrate 25 MG TAB PO SCH (20:41)
[2019-01-11 05:49] LABS: INR-International Normal Ratio 3.5; Prothrombin Time 35.2 SEC (12.0-14.7)
[2019-01-11 05:50] LABS: #Eosinphils 0.1 thou/uL (0.0-0.7); #Lymphocytes 0.8 thou/uL (1.20-3.40); #Monocytes 0.7 thou/uL (0.11-0.59); #Neutrophils 5.3 thou/uL (1.40-6.50); %Basophils 0.5 % (0.0-1.0); %Eosinophils 1.8 % (0.0-10.0); %Monocytes 10.3 % (0.0-10.0); %Neutrophils 76.5 % (42.0-75.0); Mean Corpuscular HGB CONC 29.8 g/dL (32.0-36.0); Mean Corpuscular Hemoglobin 26.8 pg (27.0-31.0); Mean Platelet Volume 6.9 fL (7.4-10.4); PTT 64.3 SEC (22.9-36.1); Platelet Count 597 thou/uL (130-400); RBC Distribution Width 18.2 % (11.5-14.5); Red Blood Cell (RBC) Count 2.98 mill/uL (4.20-5.40)
[2019-01-11] MEDS: Ciprofloxacin 500 MG TAB PO SCH ×2 (05:56→21:02)
[2019-01-11 06:02] LABS: Phosphorus 2.5 mg/dL (2.3-4.7)
[2019-01-11 06:06] LABS: ALT (SGPT) 12 U/L (8-55); AST (SGOT) 15 U/L (5-34); Albumin 2.5 g/dL (3.4-4.8); Alkaline Phosphatase 105 U/L (40-150); Anion Gap 11 mmol/L (10-20); BUN (Urea Nitrogen) 14 mg/dL (9.8-20.1); Bilirubin, Total 0.2 mg/dL (0.2-1.2); Calc. Creatinine Clearance 153 mL/min (70-130); Calcium 8.2 mg/dL (7.8-10.44); Carbon Dioxide 23 mmol/L (23-31); Chloride 107 mmol/L (98-107); Estimated GFR-MDRD 80; Globulin 3.9 g/dL (2.4-3.5); Glucose 94 mg/dL (80-115); Magnesium 1.8 mg/dL (1.6-2.6); Protein, Total 6.4 g/dL (6.0-8.3); Sodium 138 mmol/L (136-145)
[2019-01-11 06:08] LABS: Potassium 2.9 mmol/L (3.5-5.1)
[2019-01-11] MEDS ORDERED: Potassium Chloride 20 MEQ TAB PO SCH (06:45)
[2019-01-11] MEDS ORDERED: Potassium Chloride 20 MEQ/100 ML PREMIX BAG IVPB SCH (07:15)
[2019-01-11] MEDS ORDERED: Potassium Chloride 20 MEQ in Premix Bag 1 BAG IVPB SCH (07:30)
[2019-01-11] MEDS: Fluconazole 100 MG TAB PO SCH (08:35)
[2019-01-11] MEDS: K-Phos Neutral 250 MG TAB PO SCH ×4 (08:35→21:00)
[2019-01-11] MEDS: Metoprolol Tartrate 25 MG TAB PO SCH ×2 (08:35→21:00)
[2019-01-11] MEDS: Saccharomyces boulardii 250 MG CAP PO SCH (08:35)
[2019-01-11] MEDS: Famotidine 20 MG TAB PO SCH ×2 (08:36→21:01)
[2019-01-11] MEDS: Ferrous Sulfate 325 MG TAB PO SCH ×2 (08:36→17:16)
[2019-01-11] MEDS: Cyanocobalamin (Vitamin B-12) 1,000 MCG TAB PO SCH (08:36)
[2019-01-11] MEDS: Potassium Chloride 10 MEQ TAB PO SCH ×2 (08:36→17:16)
[2019-01-11] MEDS ORDERED: Magnesium 2 GM/50 ML 2 GM in Premix Bag 1 BAG IVPB SCH (09:00)
[2019-01-11 09:46] LABS: Troponin I Less than 0.010 ng/mL (< 0.028)
[2019-01-11] MEDS: Nystatin Powder 15 GM BOT TOP SCH ×2 (10:54→21:01)
--- NOTE | 2019-01-11 11:48 | EKG ---
Test Reason : Blood Pressure : / mmHG Vent. Rate : 089 BPM Atrial Rate : 089 BPM P-R Int : 162 ms QRS Dur : 082 ms QT Int : 332 ms P-R-T Axes : 062 003 004 degrees QTc Int : 403 ms Sinus rhythm with Premature atrial complexes Nonspecific ST and T wave abnormality Abnormal ECG When compared with ECG of 25-DEC-2018 13:04, Nonspecific T wave abnormality now evident in Lateral leads Confirmed by DR. Shanthi TOTH ([id number]) on 01/11/2019 11:48:28 AM Referred By: VITO Confirmed By:DR. Shanthi TOTH
[2019-01-11 12:36] LABS: Potassium 3.5 mmol/L (3.5-5.1)
[2019-01-11 12:40] LABS: Troponin I Less than 0.010 ng/mL (< 0.028)
[2019-01-11] MEDS ORDERED: Nitroglycerin 0.4 MG TAB (25 Tab Bottle) PO PRN (14:57)
[2019-01-11] MEDS ORDERED: Warfarin Sodium 5 MG TAB PO SCH (17:00)
--- NOTE | 2019-01-11 18:23 | CON ---
DATE OF CONSULTATION: 01/11/2019 REASON FOR CONSULTATION: Tachycardia. HISTORY OF PRESENT ILLNESS: Ms. Domenica Meek is a very pleasant 63-year-old woman. She was admitted to the hospital earlier this month with a ruptured viscus in her abdomen requiring emergency surgery. The patient has been here and has had several surgeries done. She was doing well up until yesterday when she had the onset of rapid heart rate. She is found to have supraventricular arrhythmia which looks like it could be left-sided atrial flutter. The patient is doing well now. She had no chest pain or pressure. She was asymptomatic with that. No previous cardiac history. PAST MEDICAL HISTORY: She has a history of pulmonary emboli occurred on 2 occasions. She is on long-term Coumadin. SOCIAL HISTORY: No alcohol or tobacco. REVIEW OF SYSTEMS: CONSTITUTIONAL: No significant weight gain or loss. VISION: No changes. HEARING: No changes. PULMONARY: No cough or wheezing. GASTROINTESTINAL: No nausea, vomiting, or diarrhea. SKIN: No rashes. NEUROLOGIC: No unilateral weakness or numbness. PSYCHIATRIC: No unusual depression or anxiety. The patient did have an INR which was extremely high on admission 9.6. PHYSICAL EXAMINATION: GENERAL: Now it is a very pleasant patient, resting comfortably, in no distress. VITAL SIGNS: Blood pressure 128/70, pulse 77 and regular. LUNGS: Clear. CARDIAC: Normal S1, normal S2. ABDOMEN: Soft and nontender. EXTREMITIES: Warm, dry. No clubbing. No cyanosis. There is no edema. She has good dorsalis pedis pulses bilaterally. LABORATORY DATA: EKG does show evidence of what looks like supraventricular tachycardia. I think it is probably not SVT, AV yaritza reentry, maybe some type of left-sided atrial flutter. The patient's potassium was low at 2.9. ASSESSMENT: 1. Supraventricular arrhythmia, possibly atrial tachycardia. 2. Postoperative status. 3. Hypokalemia. 4. Also mildly low magnesium. PLAN: 1. Agree with potassium and magnesium repletion. 2. Agree with beta blockers. 3. Consideration for changing from Coumadin to Eliquis may be much easier for this patient. Job ID: [id number]
--- NOTE | 2019-01-11 21:55 | PRG ---
DATE OF SERVICE: 01/11/2019 SUBJECTIVE: Ms. Meek remains in the hospital. She was transferred to the telemetry floor yesterday when she developed tachycardia with a heart rate up to 140. She was treated by the Medical Service in regard to this and her tachycardia is resolved. She was seen in consultation today by Dr. Max. She is resting comfortably in bed today. 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 She remains stable. She is eating and having bowel movements. She has been working with Physical Therapy. She has been off all IV antibiotics for several days. She still has a wound VAC in the right lower quadrant abdominal wound and retention sutures in her midline abdominal incision. She is receiving Diflucan for yeast that was coming from her subcutaneous drain and Levaquin in treatment of Pseudomonas coming from her lower abdominal draining sinus. She had a resistant E coli that is not currently being managed. OBJECTIVE: VITAL SIGNS: She is afebrile. Pulse 76, blood pressure 142/75. LUNGS: Clear to auscultation. ABDOMEN: Soft, nontender. Midline incision continues to heal and 3 retention sutures remain intact. There is less drainage coming from the left-sided subcutaneous drain site. She continues to have drainage from the tract infraumbilical. LABORATORY DATA: Her white blood cell count remains stable at 7, hemoglobin 8.0, platelet count 597. Her potassium was low at 2.9 this morning, was 3.5 later in the day. Her pre-albumin remains low at 13. She is receiving a regular diet and supplements. She is still not eating enough to improve her nutritional status. Her albumin is low at 2.5. ASSESSMENT: The patient who is postoperative day #17 from her abdominal surgery. She has undergone a small bowel resection and removal of most of her infected mesh. She will continue to require wound VAC for right lower quadrant wound and external wound care for her midline abdominal incision. She is still stable for discharge to rehab facility as soon as she is accepted to one. I would probably plan to remove her abdominal incision niko around 3 weeks out from her surgery and her retention sutures about a month out from surgery. Job ID: [id number]
--- NOTE | 2019-01-11 22:00 | PDOC.PN ---
- Subjective Encounter Start Date: 01/11/19 Encounter Start Time: 15:00 Patient seen and examined for med mngt. Converted to SVT. No CP. No new complaints. No overnight events - Objective MAR Reviewed: Yes Vital Signs & Weight: Vital Signs (12 hours) Temp Pulse Pulse Resp BP BP Pulse Ox 01/11/19 17:10 97.9 F 76 20 142/75 H 98 01/11/19 13:23 77 128/70 01/11/19 12:06 98.7 F 77 16 132/75 97 Weight Admit Weight 273 lb 5.971 oz Weight 271 lb Most Recent Monitor Data Heart Rate from ECG 87 NIBP 136/73 NIBP BP-Mean 107 Respiration from ECG 24 SpO2 93 I&O: 01/10/19 01/11/19 01/12/19 06:59 06:59 06:59 Intake Total 797 889 5253 Output Total 400 2100 Balance -200 780 -600 Result Diagrams: 01/11/19 05:28 01/12/19 05:14 EKG Reviewed by me: Yes (Tele Atrial tach) Phys Exam - Physical Examination Constitutional: NAD Respiratory: no wheezing, no rhonchi Cardiovascular: RRR, no rub Gastrointestinal: soft, non-tender, positive bowel sounds Musculoskeletal: no edema Neurological: moves all 4 limbs Dx/Plan - Plan IMPRESSION: 1. SVT/Atrial tachycardia probably secondary to electrolyte imbalance. 2. h/o PE - on anticoagulation. INR supratherapeutic 3. Hypertension. 4. Morbid obesity with a BMI of 49.6. 5. Electrolyte abnormalities (hypokalemia, hypomagnesemia,Hyponatremia. and hypophosphatemia) 6. Status post laparotomy for bowel perforation. PLAN: Replace Electrolytes Cont Metoprolol Echo Consult Dr Max Hold Warfarin PT/INR in AM BMP in AM Review of Systems - Review of Systems Cardiovascular: negative: chest pain, palpitations, orthopnea, paroxysmal nocturnal dyspnea, edema, light headedness, other Gastrointestinal: negative: Nausea, Vomiting, Abdominal Pain, Diarrhea, Constipation, Melena, Hematochezia, Other - Medications/Allergies Allergies/Adverse Reactions: Allergies Allergy/AdvReac Type Severity Reaction Status Date / Time No Known Allergies Allergy Verified 12/25/18 23:29 Medications: Current Medications Ciprofloxacin (Cipro) 500 mg PO 0600,1999 [facility] Last Admin: 01/11/19 21:02 Dose: 500 mg Cyanocobalamin (Vitamin B-12) 1,000 mcg PO DAILY [facility] Last Admin: 01/11/19 08:36 Dose: 1,000 mcg Dextrose/Water (Dextrose 50%) 25 gm SLOW IVP PRN PRN PRN Reason: Hypoglycemia Famotidine (Pepcid) 20 mg PO BID [facility] Last Admin: 01/11/19 21:01 Dose: 20 mg Ferrous Sulfate (Feosol) 325 mg PO BID-[facility] Last Admin: 01/11/19 17:16 Dose: 325 mg Fluconazole (Diflucan) 200 mg PO DAILY [facility] Last Admin: 01/11/19 08:35 Dose: 200 mg Glucagon (Glucagon) 1 mg IM PRN PRN PRN Reason: Hypoglycemia Dextrose/Water (D5w) 1,000 mls @ 0 mls/hr IV .Q0M PRN PRN Reason: Hypoglycemia Metoprolol Tartrate (Lopressor) 25 mg PO BID [facility] Last Admin: 01/11/19 21:00 Dose: 25 mg Miscellaneous Medication (Pharmacy To Dose) 1 each PO .WARFARIN [facility] Nitroglycerin (Nitrostat) 0.4 mg PO Q5MIN PRN PRN Reason: Chest Pain Nystatin (Mycostatin Powder) 0 gm TOP BID [facility] Last Admin: 01/11/19 21:01 Dose: 1 applic Ondansetron HCl (Zofran) 4 mg IVP Q6H PRN PRN Reason: Nausea Phosphorus (Kphos Neutral) 250 mg PO QID-[facility] Last Admin: 01/11/19 21:00 Dose: 250 mg Potassium Chloride (Klor-Con 10) 10 meq PO BID-[facility] Stop: 01/11/19 23:59 Last Admin: 01/11/19 17:16 Dose: 10 meq Saccharomyces Boulardii (Florastor) 250 mg PO DAILY [facility] Last Admin: 01/11/19 08:35 Dose: 250 mg Sodium Chloride (Flush - Normal Saline) 10 ml IVF Q12HR [facility] Last Admin: 01/11/19 21:01 Dose: 10 ml Sodium Chloride (Flush - Normal Saline) 10 ml IVF PRN PRN PRN Reason: Saline Flush Last Admin: 01/07/19 12:45 Dose: 10 ml Sodium Chloride (Flush - Normal Saline) 10 ml IVF PRN PRN PRN Reason: Saline Flush
[2019-01-12 05:36] LABS: INR-International Normal Ratio 3.2; Prothrombin Time 32.3 SEC (12.0-14.7)
[2019-01-12 05:55] LABS: Anion Gap 9 mmol/L (10-20); BUN (Urea Nitrogen) 15 mg/dL (9.8-20.1); Calc. Creatinine Clearance 139 mL/min (70-130); Calcium 8.4 mg/dL (7.8-10.44); Carbon Dioxide 25 mmol/L (23-31); Chloride 110 mmol/L (98-107); Estimated GFR-MDRD 71; Glucose 91 mg/dL (80-115); Magnesium 1.9 mg/dL (1.6-2.6); Potassium 3.3 mmol/L (3.5-5.1); Sodium 141 mmol/L (136-145)
[2019-01-12 05:57] LABS: Phosphorus 3.1 mg/dL (2.3-4.7)
[2019-01-12] MEDS: Saccharomyces boulardii 250 MG CAP PO SCH (08:19)
[2019-01-12] MEDS: K-Phos Neutral 250 MG TAB PO SCH ×4 (08:19→21:19)
[2019-01-12] MEDS: Metoprolol Tartrate 25 MG TAB PO SCH ×2 (08:19→21:19)
[2019-01-12] MEDS: Fluconazole 100 MG TAB PO SCH (08:19)
[2019-01-12] MEDS: Ferrous Sulfate 325 MG TAB PO SCH ×2 (08:19→16:31)
[2019-01-12] MEDS: Famotidine 20 MG TAB PO SCH ×2 (08:20→21:19)
[2019-01-12] MEDS: Ciprofloxacin 500 MG TAB PO SCH ×2 (08:20→21:19)
[2019-01-12] MEDS: Cyanocobalamin (Vitamin B-12) 1,000 MCG TAB PO SCH (08:20)
[2019-01-12] MEDS: Nystatin Powder 15 GM BOT TOP SCH ×2 (08:20→21:19)
[2019-01-12] MEDS: Potassium Chloride 20 MEQ TAB PO SCH ×2 (11:37→16:31)
[2019-01-12 11:56] VITALS: BMI 49.9
--- NOTE | 2019-01-12 20:42 | PRG ---
DATE OF SERVICE: 01/12/2019 SUBJECTIVE: Ms. Meek is resting comfortably in her bed on the telemetry floor. She has no new complaints. She has been in normal sinus rhythm since her transfer here. She is eating well. She tells me she is voiding and having bowel movements. She is working with physical therapy and walked approximately 250 feet today. She still has a wound VAC in the right lower quadrant abdominal wound. Retention sutures in her midline abdominal incision. She is still receiving ciprofloxacin and Diflucan. She is postoperative day #18 from her abdominal surgery (on December 25) with closure of her abdominal wall on December 27. PHYSICAL EXAMINATION: VITAL SIGNS: Temperature 98, pulse 78, blood pressure 127/64. LUNGS: Clear to auscultation. ABDOMEN: Soft and nontender with normal bowel sounds. Her niko and retention sutures are still intact. These were placed 16 days ago. She still has some drainage from the left lower quadrant subcutaneous drain site. Her infraumbilical drain site has minimal drainage currently. LABORATORY DATA: There was no CBC today. Chemistries reveal that her potassium is a little low at 3.3. Magnesium and phosphorus are normal. Coagulation panel reveals her INR is down from 3.5 yesterday to 3.2. ASSESSMENT: She appears to continue stable. She is still appropriate for transfer to rehab facility (as requested about a week and a half ago). She should continue on oral Diflucan and ciprofloxacin for the next week. I would like to see her back in my office on January 20 (when she is 24 days out from her abdominal wall closure). I would hopefully remove her abdominal incision niko at that time. She has been started on potassium supplementation as she has persistent hypokalemia. She has been cleared for rehab transfer tomorrow, and hopefully, she will be able to be transferred. She will of course continue the wound VAC to her right lower quadrant wound. Job ID: [id number]
--- NOTE | 2019-01-12 21:52 | PDOC.HOSPP ---
- Objective Vital Signs & Weight: Vital Signs (12 hours) Temp Pulse Pulse Pulse Resp BP BP 01/12/19 20:05 98.6 F 84 18 01/12/19 16:30 98.0 F 78 18 01/12/19 15:11 78 81 144/80 H 160/80 H 01/12/19 11:40 98.1 F 73 16 BP Pulse Ox 01/12/19 20:05 131/63 98 01/12/19 16:30 127/64 97 01/12/19 15:11 01/12/19 11:40 138/72 96 Weight Admit Weight 273 lb 5.971 oz Weight 273 lb 1 oz Most Recent Monitor Data Heart Rate from ECG 87 NIBP 136/73 NIBP BP-Mean 107 Respiration from ECG 24 SpO2 93 I&O: 01/11/19 01/12/19 01/13/19 06:59 06:59 06:59 Intake Total 780 1900 Output Total 2600 Balance 780 -700 Result Diagrams: 01/11/19 05:28 01/12/19 05:14 EKG Reviewed by me: Yes (Tele SR) ROS - Review of Systems All systems: All other ROS were reviewed and found negative. - Medication Medications: Active Medications Generic Name Dose Route Start Last Admin Trade Name Freq PRN Reason Stop Dose Admin Ciprofloxacin 500 mg 01/09/19 20:00 01/12/19 21:19 Cipro PO 500 mg 0600,1999 MISSAEL Administration Cyanocobalamin 1,000 mcg 01/11/19 09:00 01/12/19 08:20 Vitamin B-12 PO 1,000 mcg DAILY MISSAEL Administration Famotidine 20 mg 01/04/19 21:00 01/12/19 21:19 Pepcid PO 20 mg BID MISSAEL Administration Ferrous Sulfate 325 mg 01/04/19 17:00 01/12/19 16:31 Feosol PO 325 mg BID-WM MISSAEL Administration Fluconazole 200 mg 01/09/19 09:00 01/12/19 08:19 Diflucan PO 200 mg DAILY MISSAEL Administration Metoprolol Tartrate 25 mg 01/10/19 21:00 01/12/19 21:19 Lopressor PO 25 mg BID MISSAEL Administration Nystatin 0 gm 01/02/19 21:00 01/12/19 21:19 Mycostatin Powder TOP 1 applic BID MISSAEL Administration Phosphorus 250 mg 01/10/19 12:00 01/12/19 21:19 Kphos Neutral PO 250 mg QID-WM MISSAEL Administration Potassium Chloride 20 meq 01/12/19 12:00 01/12/19 16:31 K-Dur PO 01/13/19 08:01 20 meq TID-WM MISSAEL Administration Saccharomyces Boulardii 250 mg 01/11/19 09:00 01/12/19 08:19 Florastor PO 250 mg DAILY MISSAEL Administration Sodium Chloride 10 ml 12/25/18 21:00 01/12/19 21:20 Flush - Normal Saline IVF 10 ml Q12HR MISSAEL Administration Sodium Chloride 10 ml 12/25/18 10:24 01/07/19 12:45 Flush - Normal Saline IVF 10 ml PRN PRN Administration Saline Flush - Exam NAD Heart: RRR, no gallops Respiratory: CTAB, no rales Gastrointestinal: soft, non-tender, normal bowel sounds Extremities: no edema Neurological: no focal deficits Hosp A/P - Plan IMPRESSION: 1. SVT/Atrial tachycardia probably secondary to electrolyte imbalance - in SR 2. h/o PE - on anticoagulation. INR supratherapeutic 3. HTN 4. Morbid obesity with a BMI of 49.6. 5. Electrolyte abnormalities (hypokalemia, hypomagnesemia,Hyponatremia, hypophosphatemia) 6. s/p laparotomy for bowel perforation. PLAN: Replace Potassium Cont Metoprolol Echo pending Warfarin on hold BMP/PT/INR in AM
[2019-01-13] MEDS: Ciprofloxacin 500 MG TAB PO SCH ×2 (05:24→20:01)
[2019-01-13 05:44] LABS: INR-International Normal Ratio 2.5; Prothrombin Time 26.8 SEC (12.0-14.7)
[2019-01-13 06:04] LABS: Anion Gap 12 mmol/L (10-20); BUN (Urea Nitrogen) 18 mg/dL (9.8-20.1); Calc. Creatinine Clearance 147 mL/min (70-130); Calcium 8.6 mg/dL (7.8-10.44); Carbon Dioxide 24 mmol/L (23-31); Chloride 109 mmol/L (98-107); Estimated GFR-MDRD 74; Glucose 93 mg/dL (80-115); Potassium 3.6 mmol/L (3.5-5.1); Sodium 141 mmol/L (136-145)
[2019-01-13] MEDS: Potassium Chloride 20 MEQ TAB PO SCH (08:33)
[2019-01-13] MEDS: Potassium Chloride 10 MEQ TAB PO SCH (08:35)
[2019-01-13] MEDS: Metoprolol Tartrate 25 MG TAB PO SCH ×2 (08:35→20:01)
[2019-01-13] MEDS: Saccharomyces boulardii 250 MG CAP PO SCH (08:35)
[2019-01-13] MEDS: Cyanocobalamin (Vitamin B-12) 1,000 MCG TAB PO SCH (08:35)
[2019-01-13] MEDS: Famotidine 20 MG TAB PO SCH ×2 (08:35→20:01)
[2019-01-13] MEDS: Fluconazole 100 MG TAB PO SCH (08:35)
[2019-01-13] MEDS: K-Phos Neutral 250 MG TAB PO SCH ×4 (08:35→22:36)
[2019-01-13] MEDS: Ferrous Sulfate 325 MG TAB PO SCH ×2 (08:35→16:15)
[2019-01-13] MEDS: Nystatin Powder 15 GM BOT TOP SCH ×2 (08:39→20:01)
[2019-01-13] MEDS ORDERED: Potassium Chloride 20 MEQ TAB PO SCH (09:30)
--- NOTE | 2019-01-13 16:50 | PDOC.HOSPP ---
- Subjective Subjective: Pt seen for followup rte: atrial tachycardia. Feels well, no complaints. - Objective Vital Signs & Weight: Vital Signs (12 hours) Temp Pulse Pulse Pulse Resp BP BP 01/13/19 15:16 98.9 F 78 17 01/13/19 14:19 90 79 190/99 H 137/68 01/13/19 11:31 98.0 F 74 18 01/13/19 07:40 97.9 F 73 17 BP Pulse Ox 01/13/19 15:16 137/77 97 01/13/19 14:19 01/13/19 11:31 127/75 97 01/13/19 07:40 135/73 97 Weight Admit Weight 273 lb 5.971 oz Weight 277 lb 4.8 oz Most Recent Monitor Data Heart Rate from ECG 87 NIBP 136/73 NIBP BP-Mean 107 Respiration from ECG 24 SpO2 93 I&O: 01/12/19 01/13/19 01/14/19 06:59 06:59 06:59 Intake Total 1900 Output Total 2600 Balance -700 Result Diagrams: 01/11/19 05:28 01/13/19 05:18 EKG Reviewed by me: Yes (Tele: NSR) ROS - Review of Systems All systems: All other ROS were reviewed and found negative. Respiratory: denies: cough, dry, shortness of breath, hemoptysis, SOB with excertion, pleuritic pain, sputum, wheezing Cardiovascular: denies: chest pain, palpitations, orthopnea, paroxysmal noc. dyspnea, edema, light headedness - Medication Medications: Active Medications Generic Name Dose Route Start Last Admin Trade Name Rafael PRN Reason Stop Dose Admin Ciprofloxacin 500 mg 01/09/19 20:00 01/13/19 05:24 Cipro PO 500 mg 06,1999 M[facility]EL Administration Cyanocobalamin 1,000 mcg 01/11/19 09:00 01/13/19 08:35 Vitamin B-12 PO 1,000 mcg DAILY MIS[facility]EL Administration Famotidine 20 mg 01/04/19 21:00 01/13/19 08:35 Pepcid PO 20 mg BID MISSAEL Administration Ferrous Sulfate 325 mg 01/04/19 17:00 01/13/19 16:15 Feosol PO 325 mg BID-WM MISSAEL Administration Fluconazole 200 mg 01/09/19 09:00 01/13/19 08:35 Diflucan PO 200 mg DAILY MIS[facility]EL Administration Metoprolol Tartrate 25 mg 01/10/19 21:00 01/13/19 08:35 Lopressor PO 25 mg BID M[facility]EL Administration Nystatin 0 gm 01/02/19 21:00 01/13/19 08:39 Mycostatin Powder TOP 1 applic BID M[facility]EL Administration Phosphorus 250 mg 01/10/19 12:00 01/13/19 16:15 Kphos Neutral PO 250 mg QID-WM M[facility]SAEL Administration Potassium Chloride 10 meq 01/13/19 08:00 01/13/19 08:35 Klor-Con 10 PO 10 meq QAM-WM MISSAEL Administration Saccharomyces Boulardii 250 mg 01/11/19 09:00 01/13/19 08:35 Florastor PO 250 mg DAILY M[facility]EL Administration Sodium Chloride 10 ml 12/25/18 21:00 01/13/19 08:44 Flush - Normal Saline IVF 10 ml Q12HR MISSAEL Administration Sodium Chloride 10 ml 12/25/18 10:24 01/07/19 12:45 Flush - Normal Saline IVF 10 ml PRN PRN Administration Saline Flush - Exam NAD Eye: anicteric sclera Neck: supple Heart: RRR Respiratory: CTAB Gastrointestinal: soft Skin: no lesions Psychiatric: normal affect Hosp A/P (1) Atrial tachycardia Code(s): I47.1 - SUPRAVENTRICULAR TACHYCARDIA Status: Acute (2) HTN (hypertension) Code(s): I10 - ESSENTIAL (PRIMARY) HYPERTENSION Status: Chronic (3) History of pulmonary embolism Code(s): Z86.711 - PERSONAL HISTORY OF PULMONARY EMBOLISM Status: Chronic (4) Morbid obesity Code(s): E66.01 - MORBID (SEVERE) OBESITY DUE TO EXCESS CALORIES Status: Chronic - Plan PT/OT, out of bed/ambulate Pt is clinically stable, awaiting Inpt Rehab bed (will probably be available tomorrow). Pt is under surgical service. Pt should be on Lopressor and Eliquis at the time of discharge, not on warfarin/
--- NOTE | 2019-01-13 19:46 | PRG ---
DATE OF SERVICE: 01/13/2019 SUBJECTIVE: Domenica Meek is seen today for Dr. Liao. The patient is status post, 12/28/2018, laparotomy, ABThera placement initially, subsequent removal in the next day with abdominal washout, placement of drains, one subcu, complex closure of abdominal wall using retention sutures after bowel resection. The patient is doing well. She is waiting for rehab. She was not sent to rehab today because of lack of beds. I was told that she will have to recertified tomorrow. The patient is ready to go to rehab anytime from a surgical standpoint. She is eating well, having bowel movements. OBJECTIVE: VITAL SIGNS: 98.9 degrees, 78, 137/77. Urine output is good. LUNGS: Clear to auscultation. CARDIAC: Regular rate and rhythm without murmur or gallop. ABDOMEN: Soft, obese. Surgical wound looks good. LABORATORY DATA: Basic metabolic profile is normal. ASSESSMENT AND PLAN: 1. Deconditioning. Increase activity. Physical therapy. Rehab. 2. The patient is ready to go to rehab anytime from a surgical standpoint. She can shower and bathe, patting her wound dry. Job ID: [id number]
[2019-01-14 04:53] LABS: INR-International Normal Ratio 2.2
[2019-01-14] MEDS: Ciprofloxacin 500 MG TAB PO SCH (05:26)
[2019-01-14] MEDS: Metoprolol Tartrate 25 MG TAB PO SCH (08:04)
[2019-01-14] MEDS: Cyanocobalamin (Vitamin B-12) 1,000 MCG TAB PO SCH (08:04)
[2019-01-14] MEDS: Ferrous Sulfate 325 MG TAB PO SCH (08:04)
[2019-01-14] MEDS: Famotidine 20 MG TAB PO SCH (08:05)
[2019-01-14] MEDS: K-Phos Neutral 250 MG TAB PO SCH ×2 (08:05→11:26)
[2019-01-14] MEDS: Potassium Chloride 10 MEQ TAB PO SCH (08:05)
[2019-01-14] MEDS: Fluconazole 100 MG TAB PO SCH (08:06)
[2019-01-14] MEDS: Saccharomyces boulardii 250 MG CAP PO SCH (08:06)
[2019-01-14] MEDS: Nystatin Powder 15 GM BOT TOP SCH (08:07)
[2019-01-14] MEDS ORDERED: Apixaban 5 MG TAB PO SCH (09:00)
[2019-01-14 16:23] VITALS: BP 172/82; TEMP 98.4
--- NOTE | 2019-01-14 17:50 | EKG ---
Test Reason : Blood Pressure : / mmHG Vent. Rate : 145 BPM Atrial Rate : 072 BPM P-R Int : 000 ms QRS Dur : 102 ms QT Int : 330 ms P-R-T Axes : 000 006 246 degrees QTc Int : 512 ms Supraventricular tachycardia Cannot rule out Inferior infarct , age undetermined Abnormal ECG When compared with ECG of 09-JAN-2019 21:56, (Unconfirmed) Premature atrial complexes are no longer Present Vent. rate has increased BY 56 BPM T wave inversion now evident in Inferior leads Inverted T waves have replaced nonspecific T wave abnormality in Anterior leads Confirmed by DR. Maryan ORTIZ ([id number]) on 01/14/2019 5:49:52 PM Referred By: UDAY Confirmed By:DR. Maryan ORTIZ
== END 2019-01-14 17:43 | DRG 907 ==
LOC: ERS 09:01 → CCU 14:55 → SURG A 01-03 11:15 → 2NO 01-09 23:44
PROVIDERS: ADMIT Specialist; ATTEND Specialist
PROC: 0DB80ZZ Excision of Small Intestine, Open Approach (ICD-10-PCS; principal; 2018-12-28)
PROC: 0WPF0JZ Removal of Synthetic Substitute from Abdominal Wall, Open Approach (ICD-10-PCS; 2018-12-28)
PROC: 0W9G30Z Drainage of Peritoneal Cavity with Drainage Device, Percutaneous Approach (ICD-10-PCS; 2018-12-28)
PROC: 5A1955Z Respiratory Ventilation, Greater than 96 Consecutive Hours (ICD-10-PCS; 2018-12-28)
PROC: 05H533Z Insertion of Infusion Device into Right Subclavian Vein, Percutaneous Approach (ICD-10-PCS; 2018-12-28)
DX: T85.79XA Infection and inflammatory reaction due to other internal prosthetic devices, implants and grafts, initial encounter (principal); A41.9 Sepsis, unspecified organism; K63.1 Perforation of intestine (nontraumatic); K65.1 Peritoneal abscess; J96.00 Acute respiratory failure, unspecified whether with hypoxia or hypercapnia; L02.211 Cutaneous abscess of abdominal wall; B96.20 Unspecified Escherichia coli [E. coli] as the cause of diseases classified elsewhere; B96.5 Pseudomonas (aeruginosa) (mallei) (pseudomallei) as the cause of diseases classified elsewhere; Z68.43 Body mass index [BMI] 50.0-59.9, adult; K63.2 Fistula of intestine; I47.1 Supraventricular tachycardia; E87.1 Hypo-osmolality and hyponatremia; E87.6 Hypokalemia; E66.01 Morbid (severe) obesity due to excess calories; I10 Essential (primary) hypertension; K46.9 Unspecified abdominal hernia without obstruction or gangrene; E83.42 Hypomagnesemia; E83.39 Other disorders of phosphorus metabolism; Z86.711 Personal history of pulmonary embolism; Z79.01 Long term (current) use of anticoagulants; Z90.49 Acquired absence of other specified parts of digestive tract; Z79.899 Other long term (current) drug therapy
CPT/HCPCS: 36415; 36416; 36430; 71045; 74177; 80048; 80053; 80076; 81003; 81015; 82805; 83605; 83735; 84100; 84134; 84484; 85025; 85060; 85610; 85730; 86850; 86900; 86901; 87040; 87070; 87077; 87086; 87186; 87205; 88307; 93005; 93010; 93306; 94002; 94003; 94760; 96361; 96365; 96366; 96367; 96375; C9132; J1450; J1650; J1815; J1885; J1940; J2001; J2060; J2250; J2543; J2704; J3010; J3370; J3475; J3480; J3490; J7050; J7120; P9016; P9059; Q9966; Q9967; S0028

== ENCOUNTER 2019-05-06 15:16 | Inpatient (IN) | payer BC ==
[2019-05-06] MEDS ORDERED: Diltiazem 125 MG/25 ML ONE (15:48)
[2019-05-06 15:57] LABS: #Basophils 0.1 thou/uL (0.0-0.2); #Eosinphils 0.2 thou/uL (0.0-0.7); #Lymphocytes 1.3 thou/uL (1.20-3.40); #Monocytes 0.4 thou/uL (0.11-0.59); #Neutrophils 4.7 thou/uL (1.40-6.50); %Basophils 0.8 % (0.0-1.0); %Eosinophils 2.3 % (0.0-10.0); %Monocytes 6.1 % (0.0-10.0); %Neutrophils 70.8 % (42.0-75.0); Hemoglobin 14.6 g/dL (12.0-16.0); Mean Corpuscular HGB CONC 32.1 g/dL (32.0-36.0); Mean Corpuscular Hemoglobin 29.1 pg (27.0-31.0); Mean Corpuscular Volume 90.8 fL (78.0-98.0); Mean Platelet Volume 7.3 fL (7.4-10.4); Platelet Count 339 thou/uL (130-400); RBC Distribution Width 14.6 % (11.5-14.5); White Blood Cell (WBC) Count 6.6 thou/uL (4.8-10.8)
[2019-05-06 16:03] LABS: PTT 28.7 SEC (22.9-36.1); Prothrombin Time 22.6 SEC (12.0-14.7)
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
[2019-05-06 16:18] LABS: Phosphorus 3.7 mg/dL (2.3-4.7)
[2019-05-06 16:20] LABS: ALT (SGPT) 16 U/L (8-55); AST (SGOT) 17 U/L (5-34); Albumin 4.4 g/dL (3.4-4.8); Alkaline Phosphatase 141 U/L (40-110); Anion Gap 15 mmol/L (10-20); BUN (Urea Nitrogen) 30 mg/dL (9.8-20.1); Bilirubin, Total 0.2 mg/dL (0.2-1.2); Calc. Creatinine Clearance 0 mL/min (70-130); Calcium 9.6 mg/dL (7.8-10.44); Carbon Dioxide 21 mmol/L (23-31); Chloride 110 mmol/L (98-107); Estimated GFR-MDRD 51; Globulin 3.4 g/dL (2.4-3.5); Glucose 99 mg/dL (80-115); Potassium 4.4 mmol/L (3.5-5.1); Protein, Total 7.8 g/dL (6.0-8.3); Sodium 142 mmol/L (136-145)
[2019-05-06] MEDS ORDERED: Metoprolol Tartrate 5 MG/5 ML VIAL ONE (17:22)
[2019-05-06] MEDS ORDERED: Acetaminophen 325 MG TAB PO PRN (18:21)
[2019-05-06] MEDS ORDERED: Ondansetron PF 4 MG/2 ML Vial IVP PRN (18:21)
[2019-05-06] MEDS ORDERED: HYDROcodone/Acetaminophen 5/325 mg Tablet PO PRN (18:21)
[2019-05-06] MEDS ORDERED: Bisacodyl 10 MG SUPP PR PRN (18:21)
[2019-05-06] MEDS ORDERED: Senokot S 8.6-50 MG TAB PO PRN (18:21)
[2019-05-06] MEDS ORDERED: Guaifenesin DM 100-10/5 ML UDCUP PO PRN (18:21)
[2019-05-06] MEDS ORDERED: Diltiazem 125 MG in Sodium Chloride 0.9% 100 ML IVPB SCH (18:21)
[2019-05-06 18:56] VITALS: BMI 46.7
[2019-05-06] MEDS: Sodium Chloride 0.9% 1,000 ML IV SCH (19:00)
[2019-05-06 19:04] VITALS: BP 109/70
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
[2019-05-06] MEDS: Metoprolol Tartrate 25 MG TAB PO SCH (21:47)
[2019-05-06] MEDS: Famotidine 20 MG TAB PO SCH (21:47)
[2019-05-07] MEDS: Sodium Chloride 0.9% 1,000 ML IV SCH ×2 (04:00→15:31)
[2019-05-07 05:36] LABS: #Eosinphils 0.2 thou/uL (0.0-0.7); #Lymphocytes 1.2 thou/uL (1.20-3.40); #Monocytes 0.5 thou/uL (0.11-0.59); #Neutrophils 3.2 thou/uL (1.40-6.50); %Basophils 0.4 % (0.0-1.0); %Eosinophils 3.8 % (0.0-10.0); %Lymphocytes 23.1 % (21.0-51.0); %Neutrophils 63.7 % (42.0-75.0); Hemoglobin 13.2 g/dL (12.0-16.0); Mean Corpuscular HGB CONC 31.3 g/dL (32.0-36.0); Mean Corpuscular Hemoglobin 29.8 pg (27.0-31.0); Mean Corpuscular Volume 95.4 fL (78.0-98.0); Mean Platelet Volume 7.6 fL (7.4-10.4); Platelet Count 227 thou/uL (130-400); RBC Distribution Width 14.6 % (11.5-14.5); Red Blood Cell (RBC) Count 4.42 mill/uL (4.20-5.40); White Blood Cell (WBC) Count 5.1 thou/uL (4.8-10.8)
[2019-05-07 05:56] LABS: Calcium 8.5 mg/dL (7.8-10.44); Chloride 116 mmol/L (98-107); Glucose 89 mg/dL (80-115); Potassium 4.6 mmol/L (3.5-5.1); Sodium 138 mmol/L (136-145)
[2019-05-07 05:58] LABS: Carbon Dioxide 13 mmol/L (23-31)
[2019-05-07 06:00] LABS: Calc. Creatinine Clearance 134 mL/min (70-130); Estimated GFR-MDRD 73
[2019-05-07 06:01] LABS: BUN (Urea Nitrogen) 21 mg/dL (9.8-20.1)
[2019-05-07 06:16] LABS: Anion Gap 14 mmol/L (10-20)
[2019-05-07] MEDS: Aspirin Chewable 81 MG TAB PO SCH (08:40)
[2019-05-07] MEDS: Famotidine 20 MG TAB PO SCH ×3 (08:40→19:58)
[2019-05-07] MEDS: Ferrous Sulfate 325 MG TAB PO SCH (08:40)
[2019-05-07] MEDS: Metoprolol Tartrate 25 MG TAB PO SCH ×2 (08:40→20:00)
[2019-05-07] MEDS: Cyanocobalamin (Vitamin B-12) 1,000 MCG TAB PO SCH (08:40)
[2019-05-07] MEDS ORDERED: PROPOFOL 200 MG/20 ML VIAL ONE (11:33)
[2019-05-07] MEDS ORDERED: PHENYLEPHRINE-NS 100 MCG/ML 10 ML SYRINGE ONE (11:33)
[2019-05-07] MEDS ORDERED: Lidocaine 1% PF 5 ML VIAL ONE (11:33)
[2019-05-07] MEDS ORDERED: Lidocaine 1% (PF) 30 ML VIAL ONE (12:59)
[2019-05-07] MEDS ORDERED: Heparin (Artline) 500 ML ONE (12:59)
[2019-05-07] MEDS ORDERED: Heparin 10,000 UNITS/1 ML VIAL ONE (12:59)
[2019-05-07] MEDS ORDERED: Phenylephrine HCL 10 MG/ML VIAL ONE (13:57)
--- NOTE | 2019-05-07 14:04 | PDOC.HOSPP ---
- Subjective Encounter Date: 05/07/19 Encounter Time: 09:40 Subjective: no chest pain or palp feels better at bedside is npo - Objective Vital Signs & Weight: Vital Signs (12 hours) Temp Pulse Ox 05/07/19 11:36 97.9 F 05/07/19 08:00 97.9 F 05/07/19 07:52 98 05/07/19 04:00 98 05/07/19 03:00 98 F Weight Weight 256 lb Most Recent Monitor Data Heart Rate from ECG 106 NIBP 126/58 NIBP BP-Mean 80 Respiration from ECG 25 SpO2 94 I&O: 05/06/19 05/07/19 05/08/19 06:59 06:59 06:59 Intake Total 1535 Output Total 3 Balance 1532 Result Diagrams: 05/07/19 05:22 05/07/19 05:22 Hospitalist ROS - Medication Medications: Active Medications Generic Name Dose Route Start Last Admin Trade Name Freq PRN Reason Stop Dose Admin Aspirin 81 mg 05/07/19 09:00 05/07/19 08:40 Aspirin Chewable PO Not Given DAILY [facility] Cyanocobalamin 1,000 mcg 05/07/19 09:00 05/07/19 08:40 Vitamin B-12 PO Not Given DAILY [facility] Famotidine 20 mg 05/06/19 21:00 05/07/19 08:40 Pepcid PO Not Given BID [facility] Ferrous Sulfate 325 mg 05/07/19 08:00 05/07/19 08:40 Feosol PO Not Given QAM-WM MISSAEL Diltiazem HCl 125 mg/ Sodium 125 mls @ 10 mls/hr 05/06/19 18:21 05/07/19 04: 00 Chloride IVPB 125 mls INF MISSAEL Administration Protocol 10 MG/HR Sodium Chloride 1,000 mls @ 100 mls/hr 05/06/19 18:21 05/07/19 04:00 Normal Saline 0.9% IV 1,000 mls .Q10H MISSAEL Administration Metoprolol Tartrate 25 mg 05/06/19 21:00 05/07/19 08:40 Lopressor PO Not Given BID MISSAEL Sodium Chloride 10 ml 05/06/19 21:00 05/07/19 08:41 Flush - Normal Saline IVF 10 ml Q12HR MISSAEL Administration - Exam General Appearance: awake alert Eye: PERRL, anicteric sclera ENT: no oropharyngeal lesions, moist mucosa Neck: supple, no JVD Heart: RRR, no murmur Respiratory: no wheezes, no rales Gastrointestinal: soft, non-tender, non-distended, normal bowel sounds Extremities: no cyanosis, no edema Neurological: cranial nerve grossly intact, no focal deficits Psychiatric: normal affect, A&O x 3 Hosp A/P (1) Atrial flutter Code(s): I48.92 - UNSPECIFIED ATRIAL FLUTTER Status: Acute (2) HTN (hypertension) Code(s): I10 - ESSENTIAL (PRIMARY) HYPERTENSION Status: Chronic Qualifiers: Hypertension type: essential hypertension Qualified Code(s): I10 - Essential (primary) hypertension (3) History of pulmonary embolism Code(s): Z86.711 - PERSONAL HISTORY OF PULMONARY EMBOLISM Status: Chronic (4) Morbid obesity with BMI of 45.0-49.9, adult Code(s): E66.01 - MORBID (SEVERE) OBESITY DUE TO EXCESS CALORIES; Z68.42 - BODY MASS INDEX (BMI) 45.0-49.9, ADULT Status: Chronic - Plan is on cardizem drip at 10mg/hr continue lopressor, asp, iron and gentle iv hydration is npo, likely ablation later this afternoon, d/w echo shows normal EF and LA size
[2019-05-07] MEDS ORDERED: DOPamine 400 MG/D5W 250 ML 250 ML ONE (14:11)
[2019-05-07] MEDS ORDERED: Promethazine HCl 25 MG/ML VIAL SLOW IVP PRN (14:31)
[2019-05-07] MEDS ORDERED: Morphine Sulfate 2 MG/ML SYRINGE SLOW IVP PRN (14:31)
[2019-05-07] MEDS ORDERED: Ondansetron HCl/PF 4 MG/2 ML Vial IVP PRN (14:31)
[2019-05-07] MEDS ORDERED: Morphine 2 MG/ML SYRINGE ONE (15:02)
[2019-05-07] MEDS ORDERED: Ondansetron PF 4 MG/2 ML Vial ONE (15:06)
[2019-05-07] MEDS ORDERED: Warfarin Sodium 5 MG TAB PO SCH (17:00)
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
--- NOTE | 2019-05-07 20:34 | OP ---
DATE OF PROCEDURE: 05/07/2019 PROCEDURES PERFORMED: Electrophysiology study and radiofrequency ablation REASON FOR PROCEDURE: Mrs. Meek presenting with sustained atrial flutter which has typical isthmus dependent morphology. She has been on chronic anticoagulation, hence remote PE and DVT, here for EP study and ablation procedure. DESCRIPTION OF PROCEDURE: The patient received propofol by anesthesia specialist. After adequate level of sedation achieved, the right femoral venous area was prepped, draped, anesthetized with subcutaneous lidocaine and under ultrasound guidance, the right femoral vein was cannulated and two 8-Italian short sheaths were then introduced. Through these, a decapolar catheter was then advanced to the right atrium, right ventricle, His bundle, and CS position. Pacing mapping and recording were performed at each location including pacing the left atrium via the CS. Following baseline findings were noted. Baseline rhythm was atrial flutter with flutter cycle length about 210 milliseconds. The burst atrial pacing entrained the tachycardia at the cavotricuspid isthmus location and the post pacing interval closely matched the tachycardia cycle length. This suggested isthmus dependency. The CS activation during atrial flutter was similar. With the help of a ThermoCool SFST catheter, 3D map for right atrium was obtained, delineating the His bundle, CS, os, and cavotricuspid isthmus area. Radiofrequency ablation was delivered, total of 5 lesions at total duration of 2 minutes and 23 seconds at the cavotricuspid isthmus area at 40 victoria. During the ablation, the atrial flutter terminated. Proximal CS pacing was further performed and further ablation lesions were delivered to lengthen the transisthmus time from baseline of 50 milliseconds to 150 milliseconds. The longest transisthmus time was measured adjacent to the ablation line which suggested direction of isthmus block. Following that, EP study was performed. Sinus node recovery time was measured to be 520. Corrected sinus node recovery time was 525 milliseconds. The QRS duration was 69 milliseconds, QT was 60 milliseconds, HV was measured to be 41 milliseconds. VA conduction was central, with VA conduction block measured at 480 milliseconds. AV yaritza ERP was measured at 600/300 milliseconds. No dual AV yaritza physiology was noted. Burst atrial pacing was performed down to 180 millisecond cycle length and we were not able to reinduce any atrial arrhythmias, on and off dopamine. The isthmus block was checked on dopamine and any reconnection was re-ablated. At the end of the case, cardiac silhouette did not change and the catheter was removed in lab tech and Vascade closure was performed. CONCLUSION: 1. Successful cavotricuspid isthmus ablation to terminate atrial flutter and preventing re-inducibility. 2. Mildly abnormal sinus node recovery time. 3. Normal AV yaritza and His-Purkinje function. 4. No dual AV yaritza physiology or accessory pathway present. PLAN: Continue anticoagulation. Monitor for recurrent arrhythmias. Job ID: [id number]
[2019-05-08] MEDS: Sodium Chloride 0.9% 1,000 ML IV SCH (03:53)
[2019-05-08 04:26] LABS: Anion Gap 9 mmol/L (10-20); BUN (Urea Nitrogen) 15 mg/dL (9.8-20.1); Calc. Creatinine Clearance 132 mL/min (70-130); Carbon Dioxide 19 mmol/L (23-31); Chloride 115 mmol/L (98-107); Estimated GFR-MDRD 72; Glucose 87 mg/dL (80-115); Potassium 3.8 mmol/L (3.5-5.1); Sodium 139 mmol/L (136-145)
[2019-05-08] MEDS: Cyanocobalamin (Vitamin B-12) 1,000 MCG TAB PO SCH (08:14)
[2019-05-08] MEDS: Aspirin Chewable 81 MG TAB PO SCH (08:14)
[2019-05-08] MEDS: Ferrous Sulfate 325 MG TAB PO SCH (08:14)
[2019-05-08] MEDS: Metoprolol Tartrate 25 MG TAB PO SCH (08:14)
[2019-05-08 10:32] VITALS: TEMP 97.8
--- NOTE | 2019-05-08 10:37 | PRG ---
DATE OF SERVICE: 05/08/2019 SUBJECTIVE: Ms. Meek is doing great. She feels well. There are no complaints. OBJECTIVE: VITAL SIGNS: Her blood pressure is 120/90, pulse 80. LUNGS: Clear. CARDIAC: Normal S1, normal S2. The recorded pulse is 82, it is actually 60 on the bedside monitor now. ASSESSMENT: 1. Status post atrial flutter ablation. 2. History of pulmonary embolism. 3. History of hypokalemia. She was actually taking 60 mEq of potassium a day when she came in. PLAN: 1. Reduce potassium to 20 mEq a day. Her potassium is 3.8 today. 2. See us in about a month. 3. Stop aspirin. 4. Continue Coumadin current dose. Job ID: [id number]
[2019-05-08] MEDS ORDERED: Warfarin Sodium 7.5 MG TAB PO SCH (17:00)
[2019-05-09] MEDS ORDERED: Potassium Chloride 20 MEQ TAB PO SCH (08:00)
--- NOTE | 2019-05-09 16:21 | EKG ---
Test Reason : ARRYTHMIA Blood Pressure : / mmHG Vent. Rate : 079 BPM Atrial Rate : 316 BPM P-R Int : 000 ms QRS Dur : 106 ms QT Int : 370 ms P-R-T Axes : 227 -04 -09 degrees QTc Int : 424 ms Atrial flutter with 4:1 A-V conduction Nonspecific ST abnormality Abnormal ECG When compared with ECG of 06-MAY-2019 15:28, (Unconfirmed) Vent. rate has decreased BY [address] elevation has replaced ST depression in Inferior leads ST no longer depressed in Anterolateral leads Nonspecific T wave abnormality no longer evident in Anterolateral leads Confirmed by DR. Maryan ORTIZ ([id number]) on 05/09/2019 4:20:57 PM Referred By: Confirmed By:DR. Maryan ORTIZ
--- NOTE | 2019-05-09 16:25 | DIS ---
DATE OF ADMISSION: 05/06/2019 DATE OF DISCHARGE: 05/08/2019 DISCHARGE DISPOSITION: To home. PRIMARY DISCHARGE DIAGNOSES: Atrial flutter, status post cavotricuspid isthmus ablation in sinus rhythm. SECONDARY DISCHARGE DIAGNOSES: Hypertension; history of pulmonary embolism, on Coumadin; morbid obesity. PROCEDURES DONE DURING HOSPITALIZATION: Echo with 2D Doppler done showed EF of 55% to 60%, had structurally normal mitral valve. No mitral regurgitation was seen. The patient had electrophysiology study and radiofrequency ablation with ablation done on 05/07/[address] Milian. She has had successful cavotricuspid isthmus ablation to terminate atrial flutter. H and H 13 and 42, platelet count 227, MCV 95. Initial PT/INR 22 and 2.0. Discharge BUN and creatinine 15 and 0.8. BNP 126. DISCHARGE MEDICATIONS: The patient to continue Coumadin as before 5 mg on Friday, Friday, Friday and 1.5 mg on Friday, , Friday, and Friday. 1. Lopressor 50 mg twice daily. 2. Ferrous sulfate 325 mg p.o. twice daily. 3. Vitamin B12 1000 mcg p.o. daily. ALLERGIES: NO KNOWN DRUG ALLERGIES. INPATIENT CONSULT: Dr. Max for Cardiology, Dr. Rukhsana Bose for Electrophysiology. DISCHARGE PLAN: The patient to follow up with Dr. Milian in 3 to 4 weeks; Dr. Chávez, her primary care physician in 3 days with a PT/INR check as well; and Dr. Max in 3 to 4 weeks. BRIEF COURSE DURING HOSPITALIZATION: The patient initially was found to have had atrial fibrillation/flutter in her primary care physician's office. She was sent over to Dr. Max's office where it was confirmed. The patient was subsequently admitted through the ER. She was placed on Cardizem drip and has had consultation with Dr. Max and Dr. Milian. She had typical atrial flutter. The patient was taken for EP studies and has had successful cavotricuspid isthmus ablation done. Post this procedure, the patient has been in normal sinus rhythm. Please note, the patient did not have any clinical symptoms, although her heart rates were in the 150s on admission. Echo with 2D Doppler done showed a normal ejection fraction. Her left atrial area was 22.04 cm2. She has otherwise remained hemodynamically stable, ambulating prior to discharge. Her Coumadin has also been resumed. She needs a repeat INR check either on Friday or Friday and see her primary care physician for the same. She has been cleared for discharge by Cardiology. Please note, I have seen and examined the patient on the day of discharge. Job ID: [id number] MTDD
== END 2019-05-08 12:06 | disposition home or self-care (01) | DRG 274 ==
LOC: ERS 15:16 → IMCU/EMU 18:50
PROVIDERS: ADMIT Internal Medicine; ATTEND Internal Medicine
PROC: 02583ZZ Destruction of Conduction Mechanism, Percutaneous Approach (ICD-10-PCS; principal; 2019-05-07)
PROC: 02K83ZZ Map Conduction Mechanism, Percutaneous Approach (ICD-10-PCS; 2019-05-07)
PROC: 4A023FZ Measurement of Cardiac Rhythm, Percutaneous Approach (ICD-10-PCS; 2019-05-07)
PROC: 4A0234Z Measurement of Cardiac Electrical Activity, Percutaneous Approach (ICD-10-PCS; 2019-05-07)
DX: I48.92 Unspecified atrial flutter (principal); Z68.42 Body mass index [BMI] 45.0-49.9, adult; E66.01 Morbid (severe) obesity due to excess calories; Z90.49 Acquired absence of other specified parts of digestive tract; Z86.711 Personal history of pulmonary embolism; Z79.01 Long term (current) use of anticoagulants
CPT/HCPCS: 36415; 71045; 76942; 80048; 80053; 80061; 82607; 83735; 83880; 84100; 84484; 85025; 85610; 85730; 93005; 93010; 93306; 93613; 93623; 93653; 96365; 96366; 96375; 96376; C1732; C1769; J1265; J1644; J2001; J2270; J2370; J2405; J2704; J3490

== ENCOUNTER 2019-05-25 08:54 | Outpatient (CLI) | payer BC ==
--- NOTE | 2019-05-25 09:35 | MMO ---
Bilateral MAMMO Bilat Diag DDI+ALEXEI. CLINICAL HISTORY: Patient is 63 years old and is seen for diagnostic exam. The patient has no family history of breast cancer. The patient has a history of Lumpectomy in 2014 and Radiation Therapy in 2014. VIEWS: The views performed were: bilateral craniocaudal with tomosynthesis; bilateral mediolateral oblique with tomosynthesis; and bilateral mediolateral with tomosynthesis. FILMS COMPARED: The present examination has been compared to a prior imaging study performed at [facility] on 05/22/2018. This study has been interpreted with the assistance of computer-aided detection. MAMMOGRAM FINDINGS: There are scattered fibroglandular densities. There are stable post operative changes seen in the left breast. There are no suspicious masses, suspicious calcifications, or new areas of architectural distortion. IMPRESSION: THERE IS NO MAMMOGRAPHIC EVIDENCE OF MALIGNANCY. A ROUTINE FOLLOW-UP MAMMOGRAM IN 1 YEAR IS RECOMMENDED. THE RESULTS OF THIS EXAM WERE SENT TO THE PATIENT. ACR BI-RADS Category 2 - Benign finding MAMMOGRAPHY NOTE: 1. A negative mammogram report should not delay a biopsy if a dominant of clinically suspicious mass is present. 2. Approximately 10% to 15% of breast cancers are not detected by mammography. 3. Adenosis and dense breasts may obscure an underlying neoplasm. Reported by: JOJO PAUL MD Electonically Signed: [id number]
== END 2019-05-25 08:55 | disposition home or self-care (01) ==
LOC: BICMAMMO 08:54
PROVIDERS: ATTEND Specialist
DX: Z08 Encounter for follow-up examination after completed treatment for malignant neoplasm (principal); Z86.000 Personal history of in-situ neoplasm of breast
CPT/HCPCS: 77066; G0279

== ENCOUNTER 2019-06-30 08:18 | Outpatient (CLI) | payer BC ==
--- NOTE | 2019-06-30 09:17 | CT ---
PA AND LATERAL VIEWS OF CHEST: HISTORY: COPD COMPARISON: 03/24/2019 FINDINGS: The heart size is prominent but stable. Calcified pleural plaques in the left are again seen. Mild ch ronic parenchymal changes are stable. No lobar consolidation, pneumothoraces, zoey pulmonary edema or pleural effusions are seen. There are degenerative changes spine. IMPRESSION: Stable exam. No acute process.
[2019-06-30] MEDS ORDERED: Iopamidol-370 76% 500 ML 1 ML ONE (14:30)
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
== END 2019-06-30 08:19 | disposition home or self-care (01) ==
LOC: BICCT 08:18
PROVIDERS: ATTEND Specialist
DX: K63.2 Fistula of intestine (principal); N20.0 Calculus of kidney; M79.3 Panniculitis, unspecified; Z90.5 Acquired absence of kidney; Z90.710 Acquired absence of both cervix and uterus; Z90.49 Acquired absence of other specified parts of digestive tract; Z90.721 Acquired absence of ovaries, unilateral
CPT/HCPCS: 74177; 82565; Q9967

== ENCOUNTER 2020-05-29 07:38 | Outpatient (CLI) | payer BC ==
--- NOTE | 2020-05-29 09:21 | MMO ---
Bilateral MAMMO Bilat Screen [facility]. CLINICAL HISTORY: Patient is 64 years old and is seen for screening. The patient has no family history of breast cancer. The patient has a history of Lumpectomy in 2014 and Radiation Therapy in 2014. VIEWS: The views performed were: bilateral craniocaudal and left mediolateral oblique. FILMS COMPARED: The present examination has been compared to prior imaging studies performed at [facility] on 05/22/2018 and 05/25/2019. This study has been interpreted with the assistance of computer-aided detection. MAMMOGRAM FINDINGS: There are scattered fibroglandular densities. There are stable left sided post-operative changes. Benign calcifications are noted bilaterally. There are no suspicious masses, suspicious calcifications, or new areas of architectural distortion. IMPRESSION: THERE IS NO MAMMOGRAPHIC EVIDENCE OF MALIGNANCY. A ROUTINE FOLLOW-UP MAMMOGRAM IN 1 YEAR IS RECOMMENDED. THE RESULTS OF THIS EXAM WERE SENT TO THE PATIENT. ACR BI-RADS Category 2 - Benign finding MAMMOGRAPHY NOTE: 1. A negative mammogram report should not delay a biopsy if a dominant of clinically suspicious mass is present. 2. Approximately 10% to 15% of breast cancers are not detected by mammography. 3. Adenosis and dense breasts may obscure an underlying neoplasm. Reported by: PEREZ RAMOS MD Electonically Signed: [id number]
== END 2020-05-29 07:39 | disposition home or self-care (01) ==
LOC: BICMAMMO 07:38
PROVIDERS: ATTEND Family Medicine
DX: Z12.31 Encounter for screening mammogram for malignant neoplasm of breast (principal); Z92.3 Personal history of irradiation
CPT/HCPCS: 77063; 77067

== ENCOUNTER 2020-10-13 08:36 | Outpatient (CLI) | payer BC ==
[2020-10-13 10:25] LABS: #Eosinphils 0.2 thou/uL (0.0-0.7); #Lymphocytes 1.2 thou/uL (1.20-3.40); #Monocytes 0.6 thou/uL (0.11-0.59); #Neutrophils 4.4 thou/uL (1.40-6.50); %Basophils 0.1 % (0.0-1.0); %Eosinophils 2.4 % (0.0-10.0); %Lymphocytes 18.3 % (21.0-51.0); %Monocytes 9.2 % (0.0-10.0); Hemoglobin 13.9 g/dL (12.0-16.0); Mean Corpuscular HGB CONC 31.5 g/dL (32.0-36.0); Mean Corpuscular Hemoglobin 29.5 pg (27.0-31.0); Mean Corpuscular Volume 93.8 fL (78.0-98.0); Mean Platelet Volume 7.4 fL (7.4-10.4); Platelet Count 306 thou/uL (130-400); RBC Distribution Width 13.6 % (11.5-14.5); Red Blood Cell (RBC) Count 4.72 mill/uL (4.20-5.40); White Blood Cell (WBC) Count 6.3 thou/uL (4.8-10.8)
[2020-10-13 10:40] LABS: Bilirubin Negative (Negative); Blood, Urine 1+ (Negative); Clarity Turbid (Clear); Glucose, Urine (Dipstick) Normal (Negative); Ketone, Urine Negative (Negative); Leukocyte 250 Leu/uL (Negative); Nitrite Negative (Negative); Protein, Urine (Dipstick) 50 mg/dL (Neg-Trace); RBC/HPF 0-3 HPF (0-3); Specific Gravity, Urine 1.018 (1.002-1.036); Squamous Epithelial 0-3 HPF (0-3); Urobilinogen Normal mg/dL (Less than 2); pH, Urine 5.5 (5.0-9.0)
[2020-10-13 10:47] LABS: Bacteria/HPF 1+ HPF (None Seen)
[2020-10-13 10:51] LABS: ALT (SGPT) 26 U/L (8-55); AST (SGOT) 24 U/L (5-34); Albumin 3.9 g/dL (3.4-4.8); Alkaline Phosphatase 119 U/L (40-110); Anion Gap 16 mmol/L (10-20); BUN (Urea Nitrogen) 17 mg/dL (9.8-20.1); Bilirubin, Total 0.5 mg/dL (0.2-1.2); Calc. Creatinine Clearance 0 mL/min (70-130); Calcium 9.2 mg/dL (7.8-10.44); Carbon Dioxide 22 mmol/L (23-31); Cardiac Risk 2.2 (Less than 4.5); Chloride 107 mmol/L (98-107); Cholesterol 143 mg/dl (< 200 Desired); Glucose 119 mg/dL (80-115); HDL Cholesterol 65 mg/dL (>60 Neg Risk); LDL Cholesterol, Calculated 44 mg/dL; Potassium 4.9 mmol/L (3.5-5.1); Protein, Total 6.9 g/dL (5.8-8.1); Sodium 140 mmol/L (136-145); Triglycerides 169 mg/dL (Less than 150); Uric Acid 7.4 mg/dL (2.6-6.0)
== END 2020-10-13 08:37 | disposition home or self-care (01) ==
LOC: SCSRAD 08:36
PROVIDERS: ATTEND Family Medicine
DX: M79.671 Pain in right foot (principal); E78.5 Hyperlipidemia, unspecified; D64.9 Anemia, unspecified; R31.29 Other microscopic hematuria; M19.071 Primary osteoarthritis, right ankle and foot
CPT/HCPCS: 36415; 80053; 80061; 81001; 84550; 85025; 87086

== ENCOUNTER 2021-05-30 08:54 | Outpatient (CLI) | payer BC | END 2021-05-30 08:55 | disposition home or self-care (01) | LOC: BICMAMMO 08:54 | PROVIDERS: ATTEND Family Medicine | DX: Z12.31 Encounter for screening mammogram for malignant neoplasm of breast (principal); Z98.890 Other specified postprocedural states | CPT/HCPCS: 77063; 77067 ==

== ENCOUNTER 2022-06-03 08:39 | Outpatient (CLI) | payer MEDICARE | END 2022-06-03 08:40 | disposition home or self-care (01) | LOC: BICMAMMO 08:39 | PROVIDERS: ATTEND Family Medicine | DX: Z12.31 Encounter for screening mammogram for malignant neoplasm of breast (principal); Z86.000 Personal history of in-situ neoplasm of breast; Z98.890 Other specified postprocedural states | CPT/HCPCS: 77063; 77067 ==

== ENCOUNTER 2022-12-25 05:39 | Day surgery (SDC) | payer MEDICARE ==
[2022-12-19 14:19] VITALS: BMI 51.9
== END 2022-12-25 08:42 | disposition home or self-care (01) ==
LOC: SDC 05:39
PROVIDERS: ATTEND Internal Medicine Gastroenterology
PROC: 0DBN8ZZ Excision of Sigmoid Colon, Via Natural or Artificial Opening Endoscopic (ICD-10-PCS; principal; 2022-12-25)
DX: Z12.11 Encounter for screening for malignant neoplasm of colon (principal); K51.40 Inflammatory polyps of colon without complications; I10 Essential (primary) hypertension; E78.5 Hyperlipidemia, unspecified; I48.91 Unspecified atrial fibrillation; Z79.01 Long term (current) use of anticoagulants; Z98.0 Intestinal bypass and anastomosis status; Z79.899 Other long term (current) drug therapy; Z90.49 Acquired absence of other specified parts of digestive tract
CPT/HCPCS: 88305

== ENCOUNTER 2023-06-20 11:20 | Outpatient (CLI) | payer MEDICARE | END 2023-06-20 11:21 | disposition home or self-care (01) | LOC: BICMAMMO 11:20 | PROVIDERS: ATTEND Family Medicine | DX: Z12.31 Encounter for screening mammogram for malignant neoplasm of breast (principal) | CPT/HCPCS: 77063; 77067 ==

== ENCOUNTER 2024-07-09 10:34 | Outpatient (CLI) | payer MEDICARE | END 2024-07-09 10:35 | disposition home or self-care (01) | LOC: BICMAMMO 10:34 | PROVIDERS: ATTEND Family Medicine | DX: Z12.31 Encounter for screening mammogram for malignant neoplasm of breast (principal); Z86.000 Personal history of in-situ neoplasm of breast; Z98.890 Other specified postprocedural states | CPT/HCPCS: 77063; 77067 ==